=== PATIENT | female | born 1945 | race Caucasian/White ===

== ENCOUNTER 2019-03-21 15:09 | Inpatient (IN) | payer MEDICARE, OTHER ==
[~2019-03-21] VITALS: Ht 160 cm; Wt 66.2 kg
--- NOTE | 2019-03-21 16:21 | Emergency Room Report ---
History of Present Illness General Chief Complaint: Generalized Weakness Source: Patient Present Illness HPI The patient is sent in by her PCP. Patient has a history of MS. She states that she had been in remission for her MS for the past 40 years. She states that when she was 31 years old she had a severe episode of MS which made her wheelchair-bound. However, since that time she has been able to function normally. She states she is able to get around on her own even after her 1 year ago. She states that starting 4 days ago she has had severe generalized weakness and has been unable to do basic activities of daily living such as getting out of bed and going to the toilet. She recently has been treated for urinary tract infection. She denies recent illness. She denies fever chills. She denies nausea or vomiting. She denies cough or congestion. She denies chest pain or shortness of breath. She denies abdominal pain. She has no other complaints. Allergies: Coded Allergies: SULFA (SULFONAMIDE ANTIBIOTICS) (Verified Allergy, Unknown, 10/07/08) Patient History Past Medical History: see triage record, DM, other - MS Social History: Denies: smoking, alcohol use, drug use Last Menstrual Period: n/a Reviewed Nursing Documentation: PMH: Agreed; PSxH: Agreed Nursing Documentation-PMH Hx Diabetes: Yes - type 2 Review of Systems All Other Systems: negative except mentioned in HPI Physical Exam Vital Signs Date Time Temp Pulse Resp B/P (MAP) Pulse Ox O2 Delivery O2 Flow Rate FiO2 03/21/19 15:30 99.9 125 18 141/70 (93) 98 Room Air Sp02 EP Interpretation: reviewed, normal General Appearance: no apparent distress, alert, GCS 15, non-toxic Head: normocephalic, atraumatic Eyes: bilateral eye normal inspection, bilateral eye PERRL ENT: hearing grossly normal, normal pharynx, no angioedema, normal voice Neck: full range of motion, supple/symm/no masses Respiratory: chest non-tender, lungs clear, normal breath sounds, no respiratory distress, no retraction, no accessory muscle use, speaking full sentences Cardiovascular #1: regular rate, rhythm, no edema Gastrointestinal: normal bowel sounds, non tender, soft, non-distended, no guarding, no rebound Rectal: deferred Musculoskeletal: normal range of motion, non-tender Neurologic: alert, oriented x3, responsive, speech normal, other - Generalized weakness Psychiatric: judgement/insight normal, memory normal, mood/affect normal, no suicidal/homicidal ideation Skin: no rash Medical Decision Making Diagnostic Impression: Primary Impression: Pyelonephritis Additional Impressions: Fever Sepsis ER Course Patient has a fever of 102. She complains of generalized weakness and was concerned that she may have been having an MS exacerbation, however, given the pyelonephritis and fever, I suspect this is the etiology of her symptoms. She was given broad-spectrum IV antibiotics, IV fluids and admitted for further evaluation and treatment. Laboratory Tests Test 03/21/19 16:16 03/21/19 16:50 White Blood Count 10.9 K/UL (4.8-10.8) H Red Blood Count 3.81 M/UL (4.20-5.40) L Hemoglobin 11.2 G/DL (12.0-16.0) L Hematocrit 33.4 % (37.0-47.0) L Mean Corpuscular Volume 88 FL (80-99) Mean Corpuscular Hemoglobin 29.4 PG (27.0-31.0) Mean Corpuscular Hemoglobin Concent 33.4 G/DL (32.0-36.0) Red Cell Distribution Width 12.1 % (11.6-14.8) Platelet Count 315 K/UL (150-450) Mean Platelet Volume 6.6 FL (6.5-10.1) Neutrophils (%) (Auto) 82.1 % (45.0-75.0) H Lymphocytes (%) (Auto) 9.4 % (20.0-45.0) L Monocytes (%) (Auto) 7.4 % (1.0-10.0) Eosinophils (%) (Auto) 0.7 % (0.0-3.0) Basophils (%) (Auto) 0.4 % (0.0-2.0) Sodium Level 129 MMOL/L (136-145) L Potassium Level 4.7 MMOL/L (3.5-5.1) Chloride Level 94 MMOL/L (98-107) L Carbon Dioxide Level 26 MMOL/L (21-32) Anion Gap 9 mmol/L (5-15) Blood Urea Nitrogen 34 mg/dL (7-18) H Creatinine 1.2 MG/DL (0.55-1.30) Estimate Glomerular Filtration Rate mL/min (>60) Glucose Level 165 MG/DL (74-106) H Lactic Acid Level 1.60 mmol/L (0.4-2.0) Calcium Level 9.0 MG/DL (8.5-10.1) Magnesium Level 1.6 MG/DL (1.8-2.4) L Total Bilirubin 0.3 MG/DL (0.2-1.0) Aspartate Amino Transferase (AST) 45 U/L (15-37) H Alanine Aminotransferase (ALT) 27 U/L (12-78) Alkaline Phosphatase 74 U/L (46-116) Total Creatine Kinase 3017 U/L (26-308) H Creatine Kinase MB 6.7 NG/ML (0.0-3.6) H Creatine Kinase MB Relative Index 0.2 Total Protein 7.4 G/DL (6.4-8.2) Albumin 2.7 G/DL (3.4-5.0) L Globulin 4.7 g/dL Albumin/Globulin Ratio 0.6 (1.0-2.7) L Urine Color Pending Urine Appearance Pending Urine pH Pending Urine Specific Follett Pending Urine Protein Pending Urine Glucose (UA) Pending Urine Ketones Pending Urine Blood Pending Urine Nitrite Pending Urine Bilirubin Pending Urine Urobilinogen Pending Urine Leukocyte Esterase Pending EKG Diagnostic Results Rate: tachycardiac Rhythm: other - S.tachycardia ST Segments: no acute changes Rhythm Strip Diag. Results EP Interpretation: yes Rate: 110's Rhythm: no PVC's, no ectopy, other Other Impression S.tachycardia Chest X-Ray Diagnostic Results Chest X-Ray Diagnostic Results : Chest X-Ray Ordered: Yes # of Views/Limited/Complete: 1 View Indication: Other EP Interpretation: Yes Interpretation: no consolidation, no effusion, no pneumothorax, no acute cardiopulmonary disease Impression: No acute disease Electronically Signed by: Shweta Valencia DO Last Vital Signs Date Time Temp Pulse Resp B/P (MAP) Pulse Ox O2 Delivery O2 Flow Rate FiO2 03/21/19 15:30 99.9 125 18 141/70 (93) 98 Room Air Status: improved Disposition: ADMITTED INPATIENT Condition: Serious Referrals: Julian Tony MD (PCP) Shweta Valencia DO Mar 21, 2019 16:21
[2019-03-21 16:33] LABS: BASOPHILS % (AUTO) 0.4 % (0.0-2.0); EOSINOPHILS % (AUTO) 0.7 % (0.0-3.0); HEMATOCRIT 33.4 % (37.0-47.0); HEMOGLOBIN 11.2 G/DL (12.0-16.0); LYMPHOCYTES % (AUTO) 9.4 % (20.0-45.0); MEAN CORPUSCULAR VOLUME 88 FL (80-99); MONOCYTES % (AUTO) 7.4 % (1.0-10.0); NEUTROPHILS % (AUTO) 82.1 % (45.0-75.0); PLATELET COUNT 315 K/UL (150-450); RED BLOOD COUNT 3.81 M/UL (4.20-5.40); RED CELL DISTRIBUTION WIDTH 12.1 % (11.6-14.8); WHITE BLOOD COUNT 10.9 K/UL (4.8-10.8)
--- NOTE | 2019-03-21 16:56 | NUR ---
ED Nurse Note: pt with straight cath urine obtained. pt with 450ml drained with intervention. pt with rectal temp done 102.2. md aware of results. cloudy yellow urine foul smelling sent to lab
[2019-03-21 16:57] LABS: ANION GAP 9 mmol/L (5-15); BLOOD UREA NITROGEN 34 mg/dL (7-18); CARBON DIOXIDE 26 MMOL/L (21-32); CHLORIDE 94 MMOL/L (98-107); CREATININE 1.2 MG/DL (0.55-1.30); POTASSIUM 4.7 MMOL/L (3.5-5.1); SODIUM 129 MMOL/L (136-145)
[2019-03-21] MEDS ORDERED: Acetaminophen 500mg (ES) tab ORAL ONE (17:00)
[2019-03-21] MEDS ORDERED: Meropenem 1 GM in NS 55 ML IVPB ONE (17:00)
--- NOTE | 2019-03-21 17:00 | Diagnostic Imaging Report ---
Indication: Pain, weakness Technique: One view of the chest Comparison: 10/06/2008 Findings: Lungs and pleural spaces are clear. Heart size is normal. No significant interim change Impression: No acute process
[2019-03-21 17:12] LABS: ALANINE AMINOTRANSFERASE 27 U/L (12-78); ALBUMIN 2.7 G/DL (3.4-5.0); ALBUMIN/GLOBULIN RATIO 0.6 (1.0-2.7); ALKALINE PHOSPHATASE 74 U/L (46-116); ASPARTATE AMINO TRANSFERASE 45 U/L (15-37); BILIRUBIN,TOTAL 0.3 MG/DL (0.2-1.0); CKMB 6.7 NG/ML (0.0-3.6); CREATINE KINASE 3017 U/L (26-308)
[2019-03-21 17:55] LABS: APPEARANCE,URINE CLOUDY; BILIRUBIN, URINE NEGATIVE (NEGATIVE); COLOR,URINE PALE YELLOW; GLUCOSE, URINE (UA) NEGATIVE (NEGATIVE); KETONES,URINE NEGATIVE (NEGATIVE); LEUKOCYTE ESTERASE ,URINE 3+ (NEGATIVE); NITRITE,URINE POSITIVE (NEGATIVE); PH,URINE 8 (4.5-8.0); PROTEIN,URINE 3+ (NEGATIVE); UROBILINOGEN,URINE NORMAL MG/DL (0.0-1.0)
--- NOTE | 2019-03-21 19:13 | NUR ---
HAND-OFF: Report and PT given to HUSAM Paredes.
[2019-03-21] MEDS ORDERED: METFORMIN HCL500 M1 ORAL (19:40)
[2019-03-21] MEDS ORDERED: DITROPAN XL5 MG ORAL (19:40)
[2019-03-21] MEDS ORDERED: VALIUM2 MG ORAL (19:40)
[2019-03-21] MEDS ORDERED: OXYTROL FOR WO1 EACH TD (19:40)
[2019-03-21] MEDS ORDERED: COZAAR25 MG ORAL (19:40)
[2019-03-21 20:17] VITALS: BP 108/56
--- NOTE | 2019-03-21 20:35 | NUR ---
TRANSFER TO FLOOR: Patient transferred to as ordered, per Dr Tony. Report given to HUSAM Whitmore . Belongings and medications given to . Family and or S/O informed of transfer.
--- NOTE | 2019-03-21 20:45 | NUR ---
NURSE NOTES: Received patient from ER. Patient alert and oriented x4. Calm and cooperative. Transferred via gurney. Patient's personal wheelchair at bedside. On room air, no signs of respiratory distress. Afebrile. No c/o pain or discomfort. Bed in low position, locked, bed alarm on, call light within reach. Oriented patient to unit.
[2019-03-21 21:00] VITALS: BP 103/45
--- NOTE | 2019-03-21 22:00 | NUR ---
NURSE NOTES: Blood sugar 191, received admission orders from Dr. Tony. Patient refused to have pictures taken but allowed nurse to inspect skin. Wound on left ischium, approximately 10 cm in diameter, yellow. Scab on left lateral fibula. Excoriation on right groin, stage 2 on sacrum.
[2019-03-21] MEDS: metFORMIN 500mg tab ORAL SCH (23:06)
[2019-03-21] MEDS ORDERED: Gadavist 7.5mMol/7.5ml vial IV PRN ×2 (23:30)
--- NOTE | 2019-03-21 23:49 | History & Physical ---
History and Physical History & Physicial Date of Admission: March 21, 2019. Patient Identification: Ms. Russell is a 73 y/o woman with intermittent fevers, increased urinary incontinence, progressive weakness, and inability to care for herself. Evaluation in the office suggested possible recurrent urinary tract infection, as well as concerns about exacerbation of neurologic causes of weakness including multiple sclerosis. Ms. Russell was referred to the [facility], where evaluation revealed fever, marked pyuria, azotemia, hyponatremia, hypomagnesemia, mild hyperglycemia, significant elevation of CPK. She is admitted for further evaluation and treatment. History of Present Illness: Ms. Russell is patient with a long history of functional deficits precipitated initially by an acute episode of multiple sclerosis which left her with functional paraparesis and an element of mild quadriparesis occurring some 40 years ago. In recent years she has been essentially wheelchair-bound with the ability to transfer. Her other chronic medical problems included hypertension, dyslipidemia, [id number] diabetes mellitus, detrusor hyperreflexia. More recently patient has had symptoms of neuropathy, felt primarily to be associated with her diabetes mellitus. In April 2017 she had an acute episode of word finding difficulty, described to an acute cerebrovascular accident. The deficit resolved to a large extent. The patient was also found at that time to have a patent foramen ovale, for which she declined surgical repair. In October 2017 she had an episode of headache and additional weakness, with suspicion of a possible additional cerebrovascular accident versus migraine. There were word finding difficulties as well during this episode. CT angiogram of the head neck demonstrated distal basilar artery stenosis as well as left posterior communicating artery stenosis. The patient was discharged on Plavix. Around this time the patient also lost her who had been experiencing progressive advanced dementia. She underwent a period of significant depressive symptomatology and reactive grief. In November 2017 the patient developed significant left lower extremity cellulitis and a left heel ulcer which required an extended outpatient course of therapy. Symptoms of intermittent claudication were also described that time. Despite these multiple problems, Ms. Russell continued to manage in her own condominium with some assistance. However she begun to consider the possibility of moving to an congregate living situation in order to have access to more care. Approximately 4 weeks ago the patient complained of increasing weakness, increasing urinary incontinence, and felt she was no longer able to care for self. She is somewhat tearful at the time. Metabolic evaluation revealed fairly normal laboratories but evidence of a Citrobacter koseri urinary tract infection. She was treated with a seven-day course of Keflex, and initially improved. However in the last week or so she has become progressively weaker, with worsening self-care deficits. She is also noted increased urinary incontinence once again and also recurrent intermittent fevers. Today she presented the office complaining that she grown so weak that she was no longer able to care for herself. Examination revealed a mild sinus tachycardia with no evidence of fever. Given the symptoms suggesting possible recurrent urinary tract infection, as well as her inability to care for herself at home, Ms. Russell was referred to the [facility] emergency department for further evaluation. In the emergency department she was noted to have fever over 102 degrees, and laboratory work revealed significant pyuria , electrolyte disorder with azotemia hyponatremia hypomagnesemia and mild hyperglycemia, as well as a significant elevation of CPK. She was therefore admitted for further evaluation and treatment. At the time of this examination, she reports she is feeling somewhat better after receiving a dose of intravenous antibiotics and intravenous fluids. Other than the generalized weakness she denies any specific new symptomatology. Although she has had a great deal of difficulty transferring and mobilizing herself there is no history of significant fall or trauma. Patient herself did raise the concern that perhaps her multiple sclerosis was somehow contributing to the acute presentation. Past Medical History: 1. History of multiple sclerosis, quiescent over 40 years with functional quadriparesis. 2. Hypertension. 3. Diabetes mellitus with neuropathy. 4. Dyslipidemia. 5. Bilateral intermittent claudication of the lower extremities. 6. History of left lower extremity cellulitis complicated by heel ulceration. 7. Detrusor hyperreflexia. 8. 2 prior episodes of word finding difficulty attributed to cerebrovascular accident and/or migraine. 9. 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 10. Patent foramen ovale. Medications: 1. Diazepam 2 mg 3 times daily as needed muscle spasm. 2. Metformin 500 mg twice daily. 3. Oxybutynin 5 mg daily. Prior medications have also included baclofen, cyclobenzaprine, escitalopram, losartan, simvastatin, [employer] Inveni transdermal pen. Allergies: Sulfa drugs. Social History: Ms. Russell is retired and [facility] As noted, she has been somewhat over a year ago. There is no significant smoking history, and a history of 1 glass of wine a day. Ms. Russell is looking into the possibility of moving into a congregate living situation such as an RCFE. She has family in the [facility]. Family History: Notable for cancer in her mother and sister, diabetes in uncles on both sides of the family, cardiac disease in her grandfather and uncles, stroke in her grandmother and mental illness in her mother. Review of Systems: Head and neck: No recent headaches. Respiratory: No dyspnea, cough. Cardiac: No noted chest pain, palpitations, chest pressure. Gastrointestinal: Somewhat diminished appetite, no abdominal pain, no change in bowel movements. Urinary: No dysuria but increased urinary incontinence as noted. Systemic: Increased generalized weakness without definite focality. Intermittent fevers feeling. Decreased ability to care for self. Stressed and discouraged but no definite depressive syndrome. Physical Examination: Blood pressure 141/70, heart rate 125 regular, respiratory rate 18, temperature 102.2 rectally, oxygen saturation 98% on room air. Generally, Ms. Russell is alert with normal fluent speech, normal mental status. She does not appear to be in acute physical distress, but does appear somewhat discouraged and frustrated. Head/neck: Normocephalic, atraumatic skull. Sclera anicteric. Oropharynx somewhat dry. Neck without discrete masses and normal range of motion. Chest: Distant but clear breath sounds. Cardiac: Regular rhythm, without audible gallops murmurs or rubs. Abdomen: Normal bowel sounds, soft, nontender, without masses or organomegaly. No definitive superior pubic tenderness or dullness. Extremities: Trace dependent edema bilaterally in the lower extremities. Patient has increased tone in lower extremities with decreased range of motion. There may be an element of contracture with flexion at the hips and knees. Neurologic: Normal language and mental status. Generalized weakness more prominent in the lower extremities. No definite new focality. Laboratory Data: WBC 10.9, hematocrit 33.4%, MCV 88, platelet count 315, differential with 82% neutrophils. Sodium 129, potassium 4.7, chloride 94, CO2 26, BUN 34, creatinine 1.2, glucose 165, lactate 1.6, calcium 9.0, magnesium 1.6, total bilirubin 0.3, AST 45, ALT 27, alkaline phosphatase 74, total CK 3017, MB 6.7, total protein 2.4, albumin 2.7. Urinalysis with 3+ protein, 4+ blood, positive nitrates, negative bilirubin, normal urobilinogen, 3+ leukocyte esterase, too numerous to count RBCs, too numerous to count WBCs, many bacteria. Chest x-ray: No acute cardiopulmonary process. Impression/Plan: 1. Ms. Russell's presentation and laboratory findings certainly are suggestive of a significant urinary tract infection, either persistent Citrobacter despite oral therapy, or recurrent infection. Predisposing factors could include chronic urinary retention, rule out other anatomic abnormalities including stone disease. An abdominal and pelvic ultrasound will be obtained as initial screening procedure in this regard. Every 6 hour bladder scans will be obtained and straight caths ordered as necessary for evidence of significant retention. Patient's Ditropan will be discontinued for the present time, and detrusor hyperreflexia will be monitored. Patient was cultured in the emergency department and started on meropenem. This will be continued for the time being pending culture results. 2. There is evidence of electrolyte disorder and azotemia, as well as presenting tachycardia, suggesting volume depletion. The patient is received 2 L of normal saline in the emergency department and will be continued on a rate of 70 cc/h with follow-up laboratories. An element of the patient's hyponatremia could be associated with mild hyperglycemia. Accu-Cheks will be obtained without a sliding scale coverage. Glycohemoglobin will be checked as well.. 3. Patient's overall functional decline and generalized weakness could also be due in part to progressive neurologic disease. Possibility of an exacerbation of her multiple sclerosis is possible, but does not appear particularly likely. MRI imaging of the brain and cervical spine will be obtained in this regard. The elevated CK raises the possibility of some type of primary myopathic disease , although the more likely etiology is associated with immobility and the sepsis. CPKs will be followed for normalization. Dr. Onur Oneal has been asked to evaluate the patient from a neurologic point of view. 4. Patient's diazepam, metformin, will be continued. 5. Once patient stabilizes sufficiently attempt will be made to mobilize patient with physical therapy. 6. At the time of discharge the patient would likely benefit from a course of physical therapy, either at the acute inpatient rehab level or at a fdc facility. Subsequent to that the patient likely would benefit from placement in an R[facility]E. Additional evaluation and treatment will be considered depending on patient's initial response to therapy and further laboratory results. Julian Tony MD Mar 21, 2019 23:49
[2019-03-22] VITALS: BP 114/58
--- NOTE | 2019-03-22 | NUR ---
NURSE NOTES: Patient finally agreed to have pictures taken of her wounds. Straight cathed patient for bladder scan of 674ml, obtained 1050 ml of output, cloudy yellow urine.
[2019-03-22] MEDS ORDERED: PLAVIX75 MG ORAL (02:32)
[2019-03-22 04:00] VITALS: BP 119/59
[2019-03-22] MEDS: Meropenem 1 GM in NS 55 ML IVPB SCH ×2 (05:44→17:17)
--- NOTE | 2019-03-22 06:30 | NUR ---
NURSE NOTES: Attempted to convince patient to have a morse, patient continues to refuse. Straight cathed patient for a bladder scan residual of 576ml. Straight cathed and obtained 900.
[2019-03-22 07:30] LABS: BASOPHILS % (AUTO) 0.4 % (0.0-2.0); EOSINOPHILS % (AUTO) 1.6 % (0.0-3.0); HEMATOCRIT 29.4 % (37.0-47.0); HEMOGLOBIN 9.9 G/DL (12.0-16.0); LYMPHOCYTES % (AUTO) 9.3 % (20.0-45.0); MEAN CORPUSCULAR VOLUME 88 FL (80-99); MONOCYTES % (AUTO) 7.8 % (1.0-10.0); NEUTROPHILS % (AUTO) 80.9 % (45.0-75.0); PLATELET COUNT 285 K/UL (150-450); RED BLOOD COUNT 3.35 M/UL (4.20-5.40); RED CELL DISTRIBUTION WIDTH 12.2 % (11.6-14.8); WHITE BLOOD COUNT 11.4 K/UL (4.8-10.8)
[2019-03-22 07:37] LABS: ALANINE AMINOTRANSFERASE 22 U/L (12-78); ALBUMIN 2.2 G/DL (3.4-5.0); ALBUMIN/GLOBULIN RATIO 0.6 (1.0-2.7); ALKALINE PHOSPHATASE 66 U/L (46-116); ANION GAP 9 mmol/L (5-15); ASPARTATE AMINO TRANSFERASE 34 U/L (15-37); BILIRUBIN,TOTAL 0.3 MG/DL (0.2-1.0); BLOOD UREA NITROGEN 26 mg/dL (7-18); CALCIUM 8.6 MG/DL (8.5-10.1); CARBON DIOXIDE 25 MMOL/L (21-32); CHLORIDE 101 MMOL/L (98-107); CREATINE KINASE 1555 U/L (26-308); CREATININE 1.2 MG/DL (0.55-1.30); POTASSIUM 4.1 MMOL/L (3.5-5.1); SODIUM 134 MMOL/L (136-145)
--- NOTE | 2019-03-22 07:41 | NUR ---
HAND-OFF: Report given to Jackie WEINER. Plan of care endorsed.
--- NOTE | 2019-03-22 07:50 | NUR ---
NURSE NOTES: Received report from HUSAM Whitmore. Patient is awake and responsive, A/O x4. Breathing regular with no acute distress noted at this time. Patient denies pain at this time. Bed is in lowest position, breaks engaged, and call light within reach at all times. Patient's IV is in tact and running fluids at prescribed rate. Patient is comfortably resting in bed with no distress at this time. Will continue to monitor.
[2019-03-22 08:00] VITALS: BP 102/46
[2019-03-22] MEDS: metFORMIN 500mg tab ORAL SCH ×2 (08:52→17:15)
--- NOTE | 2019-03-22 09:05 | NUR ---
NURSE NOTES: Dr. Chavo bergeron to order off tele order for patient to go to MRI. Order noted and carried out.
--- NOTE | 2019-03-22 10:00 | NUR ---
CASE MANAGEMENT:REVIEW 73 YR OLD FEMALE FROM HOME TO ER CC: GENERALIZED WEAKNESS AND FAST HEART RATE SI: SEPSIS. PYELONEPHRITIS 102.2 125 18 141/70 98% ON RA WBC+10.9 H/H-11.2/33.4 TCK+3017 NA-129 MAG-1.6 IS: 2L NS BOLUS TYLENOL PO IV MEROPENEM CXR URINE CX : TO TELEMETRY
--- NOTE | 2019-03-22 13:30 | NUR ---
NURSE NOTES: Bladder scan shows 680 ml. In and out cath done and cloudy pale yellow urine drained. About 800 ml output.
--- NOTE | 2019-03-22 13:48 | NUR ---
NURSE NOTES:WOUND CARE NOTES:Pt presented on admission with multiple pressure injuries.Non-blanchable erythema without induration sacrum.Macular red rash noted to R groin and perineum. Pt denied burning or itching. Unstageable pressure injury L Ischium. Base of wound 95% yellow slough,5% necrotic. Erythema with shearing noted periwound. (L)3.4cm x (W)3cm. Pt stated due to feversnand weakness has been unable to transfer to bed and has been sitting up in w/c continuously. Pt stated she belives she has had wound for approx 10days DTPI noted to L trochanter. Wound is linear ,indurated and maroon in colour. Pt verbalized pain at site when minimally palpated.(L)11cm x (W)0.8cm. DTPI L heel extending into plantar aspect. Base of wound is maroon with purple area at plantar aspect. Pt stated she developed wound to heel approx 6 weeks ago.(L)5.8cm x (W)5cm. R heel is boggy with non-blanchable erythema. Non-tender when palpated. DTPI lateral R foot. Base of wound maroon with red tinged borders. (L)0.7cm x (W)0.5cm. Tx.Plan:Apply Cavilon Skin Barrier to L trochanter (Do Not Massage/Rub site). Cover with Optifoam drsg. Change every 7 days and prn. Cleanse wound L ischium with Saline.Apply Therahoney. Apply Cavilon periwound. Cover with Optifoam drsg every 3 days and prn. Apply Moisture Barrier Paste to Sacrum. Coover with Optifoam drsg. Change every 3 days and prn. Apply Cavilon Skin Barrier to R heel , Lateral R foot and L heel. Cover with Optifoam drsg. Change every 7 days and PRN. APM/CRYSTAL Mattress overlay. Reposition at least every 2hours or as tolerated. Off-load heels with pillow.
--- NOTE | 2019-03-22 15:21 | Diagnostic Imaging Report ---
Indication: Abdominal pain, leukocytosis, elevated renal function Technique: A plantar grayscale and duplex Doppler imaging of the abdomen Comparison: None Findings: Limited evaluation of the midline due to overlying bowel gas. Proximal mid portions of the abdominal aorta and pancreas obscured. Liver is normal in size. Echogenicity is homogeneous. No sonographically appreciable liver mass identified. Hepatic contour appears smooth. Main portal vein is patent with normal direction of flow. Cholelithiasis is noted within a contracted gallbladder. There is no pericholecystic fluid. Sonographic Carroll sign reported as negative. No intrahepatic or extrahepatic biliary ductal dilatation. Common bile duct measures 3 to 4 mm. Kidneys demonstrate normal echogenicity. There is no hydronephrosis or sonographically appreciable renal stone. Bladder is distended with a volume of 515 mL. Some debris is noted layering in the bladder. Imaged portions of the distal abdominal aorta normal in caliber. Spleen normal in size. No ascites demonstrated. IMPRESSION: Cholelithiasis. No sonographic evidence to suggest acute cholecystitis. Sonographic Carroll sign reported as negative. * Pancreas obscured due to overlying bowel gas and not evaluated. * Distended bladder with a volume of 515 mL. Correlate for urinary retention. Mild layering debris noted within the bladder. Correlation with urinalysis recommended to assess for cystitis.
--- NOTE | 2019-03-22 15:40 | Neurology Progress Note ---
Interim History Interim History Interim History NEUROLOGY CONSULTATION: Full note dictated #[id number] 73-year-old, right-handed, lady, who does have a past history of multiple medical problems including what has been called multiple sclerosis. She was functioning relatively well until age 27 when she suddenly developed problems with walking due to loss of sensation in her lower extremities this loss of sensation rapidly spread into her upper extremities and she then started to become progressively weak more so in the lower extremities than the upper extremities. She was diagnosed with multiple sclerosis and given large doses of steroids following which she improved as long as she was on the steroids but as soon as the steroids were stopped the weakness and altered sensations returned. She became wheelchair-bound at that time and has remained so ever since. Over the years whenever she is ill with any other problems her weakness gets significantly worse generally. At her best she is able to transfer from bed to wheelchair. She denies any problems with vision, hearing, speech or language, memory, or other neurological symptoms. She was relatively well until approximately 2 weeks ago when she developed a urinary tract infection. She was treated with oral antibiotics and did improve. However yesterday she presented to Dr. Guajardo's office and was again significantly weaker. She was sent to the [facility] emergency room where she was febrile to temperature of 102 F, had pyuria, and had other electrolyte imbalances. She has since been admitted to the hospital and feels a little better today. ON EXAM: Awake and alert Oriented to person place and time Memory: 3/3-0, 1, 3. Able to remember presidents [employer] through [place] [employer] Mathematical skills normal Visual-spatial function normal Speech normal Language normal Cranial nerves II through XII intact Motor: Tone increased with significant spasticity in both lower extremities more marked on the right than on the left Wasting of small hand muscles in both upper extremities. Significant wasting of muscles in both lower extremities with bilateral knee contractures and flexion. G 5/5 in both upper extremities. G 0/5 in both lower extremities. Sensory: C2 segmental sensory level. Reflexes: 2+ and bilaterally symmetrical at the biceps triceps and brachioradialis. 3++ on the right and 3+ on the left at the knees. 4+ on the right and 1+ on the left at the ankles. The plantar response was extensor on the right and mute on the left Coordination: [id number] normal bilaterally unable to perform [id number] Stance and gait could not be tested IMPRESSION: 73-year-old right-handed lady with a history of altered sensations starting in her lower extremities and spreading up to upper extremities followed by weakness in the lower extremities spreading into the upper extremities at age 27 diagnosed as multiple sclerosis. History of worsening of neurological symptoms associated with any other illness. On exam significant spasticity in both lower extremities, wasting in both lower extremities more than the upper extremities, relatively good strength in the upper extremities with no motor power in both lower extremities, C2 segmental sensory level, relatively normal upper extremity reflexes with pathologically brisk knee jerks and right ankle clonus. History and examination consistent with demyelinating disease of a monophasic nature which may either be transverse myelitis versus multiple sclerosis. Present worsening of neurological dysfunction due to acute infectious process and metabolic dysfunction superimposed on underlying structural central nervous system disease. RECOMMENDATIONS: Agree with management thus far. Aggressively correct infectious and metabolic problems. Await MRI of brain and cervical spine. Further recommendations will be given following that. Onur Oneal M.D., M.S.P.H. Objective Physical Exam Last Vital Signs Date Time Temp Pulse Resp B/P (MAP) Pulse Ox O2 Delivery O2 Flow Rate FiO2 03/22/19 12:00 102 03/22/19 08:00 98.4 18 102/46 (64) 97 03/21/19 21:00 Room Air Laboratory Tests Test 03/21/19 16:16 03/21/19 16:50 03/22/19 05:30 White Blood Count 10.9 K/UL (4.8-10.8) H 11.4 K/UL (4.8-10.8) H Red Blood Count 3.81 M/UL (4.20-5.40) L 3.35 M/UL (4.20-5.40) L Hemoglobin 11.2 G/DL (12.0-16.0) L 9.9 G/DL (12.0-16.0) L Hematocrit 33.4 % (37.0-47.0) L 29.4 % (37.0-47.0) L Mean Corpuscular Volume 88 FL (80-99) 88 FL (80-99) Mean Corpuscular Hemoglobin 29.4 PG (27.0-31.0) 29.6 PG (27.0-31.0) Mean Corpuscular Hemoglobin Concent 33.4 G/DL (32.0-36.0) 33.8 G/DL (32.0-36.0) Red Cell Distribution Width 12.1 % (11.6-14.8) 12.2 % (11.6-14.8) Platelet Count 315 K/UL (150-450) 285 K/UL (150-450) Mean Platelet Volume 6.6 FL (6.5-10.1) 6.4 FL (6.5-10.1) L Neutrophils (%) (Auto) 82.1 % (45.0-75.0) H 80.9 % (45.0-75.0) H Lymphocytes (%) (Auto) 9.4 % (20.0-45.0) L 9.3 % (20.0-45.0) L Monocytes (%) (Auto) 7.4 % (1.0-10.0) 7.8 % (1.0-10.0) Eosinophils (%) (Auto) 0.7 % (0.0-3.0) 1.6 % (0.0-3.0) Basophils (%) (Auto) 0.4 % (0.0-2.0) 0.4 % (0.0-2.0) Sodium Level 129 MMOL/L (136-145) L 134 MMOL/L (136-145) L Potassium Level 4.7 MMOL/L (3.5-5.1) 4.1 MMOL/L (3.5-5.1) Chloride Level 94 MMOL/L (98-107) L 101 MMOL/L (98-107) Carbon Dioxide Level 26 MMOL/L (21-32) 25 MMOL/L (21-32) Anion Gap 9 mmol/L (5-15) 9 mmol/L (5-15) Blood Urea Nitrogen 34 mg/dL (7-18) H 26 mg/dL (7-18) H Creatinine 1.2 MG/DL (0.55-1.30) 1.2 MG/DL (0.55-1.30) Estimat Glomerular Filtration Rate mL/min (>60) mL/min (>60) Glucose Level 165 MG/DL (74-106) H 136 MG/DL (74-106) H Lactic Acid Level 1.60 mmol/L (0.4-2.0) Calcium Level 9.0 MG/DL (8.5-10.1) 8.6 MG/DL (8.5-10.1) Magnesium Level 1.6 MG/DL (1.8-2.4) L 2.2 MG/DL (1.8-2.4) Total Bilirubin 0.3 MG/DL (0.2-1.0) 0.3 MG/DL (0.2-1.0) Aspartate Amino Transf (AST/SGOT) 45 U/L (15-37) H 34 U/L (15-37) Alanine Aminotransferase (ALT/SGPT) 27 U/L (12-78) 22 U/L (12-78) Alkaline Phosphatase 74 U/L (46-116) 66 U/L (46-116) Total Creatine Kinase 3017 U/L (26-308) H 1555 U/L (26-308) H Creatine Kinase MB 6.7 NG/ML (0.0-3.6) H Creatine Kinase MB Relative Index 0.2 Total Protein 7.4 G/DL (6.4-8.2) 6.1 G/DL (6.4-8.2) L Albumin 2.7 G/DL (3.4-5.0) L 2.2 G/DL (3.4-5.0) L Globulin 4.7 g/dL 3.9 g/dL Albumin/Globulin Ratio 0.6 (1.0-2.7) L 0.6 (1.0-2.7) L Urine Color Pale yellow Urine Appearance Cloudy Urine pH 8 (4.5-8.0) Urine Specific [place] 1.005 (1.005-1.035) Urine Protein 3+ (NEGATIVE) H Urine Glucose (UA) Negative (NEGATIVE) Urine Ketones Negative (NEGATIVE) Urine Blood 4+ (NEGATIVE) H Urine Nitrite Positive (NEGATIVE) H Urine Bilirubin Negative (NEGATIVE) Urine Urobilinogen Normal MG/DL (0.0-1.0) Urine Leukocyte Esterase 3+ (NEGATIVE) H Urine RBC Tntc /HPF (0 - 2) H Urine WBC Tntc /HPF (0 - 2) H Urine Squamous Epithelial Cells Occasional /LPF Urine Bacteria Many /HPF (NONE) H Erythrocyte Sedimentation Rate 109 MM/HR (0-30) H Hemoglobin A1c 6.0 % (4.3-6.0) Vitamin B12 Level 285 PG/ML (193-986) Onur Oneal MD Mar 22, 2019 15:40
--- NOTE | 2019-03-22 15:49 | Geriatric Progress Note ---
Assessment/Plan Problems: (1) Acute kidney injury (2) Volume depletion (3) Rhabdomyolysis (4) Skin ulcer (5) B12 deficiency (6) Multiple sclerosis (7) Pyelonephritis (8) Sepsis Assessment/Plan UTI, awaiting C&S. Dr. Bloom to evaluate re antibiotic coverage. Monitor bladder volumes, emptying. Discussed with patient use of ditropan, may require urecholine if residuals persist. Skin ulcers, discussed with Dr. Chang. Treatments initiated. Significant rhabdomyolysis apparently due to severe immobility associated with patient's septic process, improved. Volume depletion improving. Monitor oral intake. LE flexion. Will mobilize in day or so with P.T. Generalized weakness, ? multiple sclerosis or other contributing pathology. Dr. Oneal evaluating patient. B12 sufficiently low to initiate parenteral supplementation at this time. Review imaging results. F/u labs. Discussed with: patient, hospital staff Subjective Interval Events Patient comfortable in room. Has been undergoing imaging studies. Patient with no new issues. VSS. Labs with improvement in azotemia, CPK. Urine growing Gm negative. B12 285. Imaging results pending. Constitutional: Denies: chills, sweats Respiratory: Denies: cough, shortness of breath Cardiovascular: Denies: chest pain Gastrointestinal/Abdominal: Denies: abdominal pain, diarrhea Genitourinary: Denies: dysuria Geriatric Geriatric Last 24 Hour Vital Signs Date Time Temp Pulse Resp B/P (MAP) Pulse Ox O2 Delivery O2 Flow Rate FiO2 03/22/19 12:00 102 03/22/19 08:00 107 03/22/19 08:00 98.4 110 18 102/46 (64) 97 03/22/19 05:50 98.4 03/22/19 04:00 110 03/22/19 04:00 98.4 100 19 119/59 (79) 98 03/22/19 00:00 103 03/22/19 00:00 98.6 105 19 114/58 (76) 97 03/21/19 21:00 104 03/21/19 21:00 98.2 102 20 103/45 (64) 98 03/21/19 21:00 Room Air 03/21/19 20:35 99.1 103 18 108/56 98 Room Air 03/21/19 20:17 99.1 103 18 108/56 98 Room Air 03/21/19 20:12 99.1 03/21/19 19:14 125 18 Room Air 03/21/19 16:56 102.2 Intake and Output 03/21/19 03/22/19 18:59 06:59 Intake Total 2255 ml Output Total 450 ml 1050 ml Balance -450 ml 1205 ml IV Total 2255 ml Output Urine Total 450 ml 1050 ml Laboratory Tests Test 03/21/19 16:16 03/21/19 16:50 03/22/19 05:30 White Blood Count 10.9 K/UL (4.8-10.8) H 11.4 K/UL (4.8-10.8) H Red Blood Count 3.81 M/UL (4.20-5.40) L 3.35 M/UL (4.20-5.40) L Hemoglobin 11.2 G/DL (12.0-16.0) L 9.9 G/DL (12.0-16.0) L Hematocrit 33.4 % (37.0-47.0) L 29.4 % (37.0-47.0) L Mean Corpuscular Volume 88 FL (80-99) 88 FL (80-99) Mean Corpuscular Hemoglobin 29.4 PG (27.0-31.0) 29.6 PG (27.0-31.0) Mean Corpuscular Hemoglobin Concent 33.4 G/DL (32.0-36.0) 33.8 G/DL (32.0-36.0) Red Cell Distribution Width 12.1 % (11.6-14.8) 12.2 % (11.6-14.8) Platelet Count 315 K/UL (150-450) 285 K/UL (150-450) Mean Platelet Volume 6.6 FL (6.5-10.1) 6.4 FL (6.5-10.1) L Neutrophils (%) (Auto) 82.1 % (45.0-75.0) H 80.9 % (45.0-75.0) H Lymphocytes (%) (Auto) 9.4 % (20.0-45.0) L 9.3 % (20.0-45.0) L Monocytes (%) (Auto) 7.4 % (1.0-10.0) 7.8 % (1.0-10.0) Eosinophils (%) (Auto) 0.7 % (0.0-3.0) 1.6 % (0.0-3.0) Basophils (%) (Auto) 0.4 % (0.0-2.0) 0.4 % (0.0-2.0) Sodium Level 129 MMOL/L (136-145) L 134 MMOL/L (136-145) L Potassium Level 4.7 MMOL/L (3.5-5.1) 4.1 MMOL/L (3.5-5.1) Chloride Level 94 MMOL/L (98-107) L 101 MMOL/L (98-107) Carbon Dioxide Level 26 MMOL/L (21-32) 25 MMOL/L (21-32) Anion Gap 9 mmol/L (5-15) 9 mmol/L (5-15) Blood Urea Nitrogen 34 mg/dL (7-18) H 26 mg/dL (7-18) H Creatinine 1.2 MG/DL (0.55-1.30) 1.2 MG/DL (0.55-1.30) Estimat Glomerular Filtration Rate mL/min (>60) mL/min (>60) Glucose Level 165 MG/DL (74-106) H 136 MG/DL (74-106) H Lactic Acid Level 1.60 mmol/L (0.4-2.0) Calcium Level 9.0 MG/DL (8.5-10.1) 8.6 MG/DL (8.5-10.1) Magnesium Level 1.6 MG/DL (1.8-2.4) L 2.2 MG/DL (1.8-2.4) Total Bilirubin 0.3 MG/DL (0.2-1.0) 0.3 MG/DL (0.2-1.0) Aspartate Amino Transf (AST/SGOT) 45 U/L (15-37) H 34 U/L (15-37) Alanine Aminotransferase (ALT/SGPT) 27 U/L (12-78) 22 U/L (12-78) Alkaline Phosphatase 74 U/L (46-116) 66 U/L (46-116) Total Creatine Kinase 3017 U/L (26-308) H 1555 U/L (26-308) H Creatine Kinase MB 6.7 NG/ML (0.0-3.6) H Creatine Kinase MB Relative Index 0.2 Total Protein 7.4 G/DL (6.4-8.2) 6.1 G/DL (6.4-8.2) L Albumin 2.7 G/DL (3.4-5.0) L 2.2 G/DL (3.4-5.0) L Globulin 4.7 g/dL 3.9 g/dL Albumin/Globulin Ratio 0.6 (1.0-2.7) L 0.6 (1.0-2.7) L Urine Color Pale yellow Urine Appearance Cloudy Urine pH 8 (4.5-8.0) Urine Specific [place] 1.005 (1.005-1.035) Urine Protein 3+ (NEGATIVE) H Urine Glucose (UA) Negative (NEGATIVE) Urine Ketones Negative (NEGATIVE) Urine Blood 4+ (NEGATIVE) H Urine Nitrite Positive (NEGATIVE) H Urine Bilirubin Negative (NEGATIVE) Urine Urobilinogen Normal MG/DL (0.0-1.0) Urine Leukocyte Esterase 3+ (NEGATIVE) H Urine RBC Tntc /HPF (0 - 2) H Urine WBC Tntc /HPF (0 - 2) H Urine Squamous Epithelial Cells Occasional /LPF Urine Bacteria Many /HPF (NONE) H Erythrocyte Sedimentation Rate 109 MM/HR (0-30) H Hemoglobin A1c 6.0 % (4.3-6.0) Vitamin B12 Level 285 PG/ML (193-986) Current Medications Medications (Trade) Dose Ordered Sig/Isaura Route PRN Reason Start Time Stop Time Status Last Admin Dose Admin Acetaminophen (Tylenol) 650 mg Q6H PRN ORAL Mild Pain/Temp > 100.5 03/21/19 22:30 04/20/19 22:29 03/22/19 05:05 Clopidogrel Bisulfate (Plavix) 75 mg DAILY ORAL 03/22/19 09:00 04/21/19 08:59 03/22/19 08:52 Dextrose (Dextrose 50%) 25 ml Q30M PRN IV Hypoglycemia 03/21/19 23:30 04/20/19 23:29 Dextrose (Dextrose 50%) 50 ml Q30M PRN IV Hypoglycemia 03/21/19 23:30 04/20/19 23:29 Diazepam (Valium) 5 mg DAILY PRN ORAL anxiety 03/21/19 22:30 03/28/19 22:29 Gadobutrol (Gadavist) 7.5 mmol NOW PRN IV Radiology Procedure 03/21/19 23:30 03/25/19 23:20 Gadobutrol (Gadavist) 7.5 mmol NOW PRN IV Radiology Procedure 03/21/19 23:30 03/25/19 23:20 Meropenem 1 gm/ Sodium Chloride 55 ml @ 110 mls/hr Q12H IVPB 03/22/19 05:00 03/27/19 04:59 03/22/19 05:44 Metformin HCl (Glucophage) 500 mg BID ORAL 03/21/19 22:30 04/20/19 22:29 03/22/19 08:52 Sodium Chloride 1,000 ml @ 70 mls/hr [id number] IV 03/21/19 22:30 04/20/19 22:29 03/21/19 23:24 Height (Feet): 5 Height (Inches): 3.00 Weight (Pounds): 146 General Appearance: no apparent distress, alert, non-toxic Head: normocephalic, atraumatic Eyes: bilateral anicteric ENT: normal voice Neck: full range of motion, no mass Respiratory: lungs clear Cardiovascular: regular rate, rhythm Gastrointestinal: normal bowel sounds, non tender, soft, no mass, no organomegaly Musculoskeletal: no calf tenderness Edema: trace edema Neurologic: no new focality Skin: wounds - Wounds as per wound care notes. Julian Tony MD Mar 22, 2019 15:49
--- NOTE | 2019-03-22 15:55 | Consultation ---
History of Present Illness General Date patient seen: Mar 22, 2019 Reason for Hospitalization: Generalized Weakness Present Illness HPI This is a very pleasant yet unfortunate 73-year-old female with history of long- standing multiple sclerosis whom in her 30s had a severe episode of MS leaving her wheelchair-bound. Since that time she has been able to function as much as possible and states she is been getting around on her own even after her approximately 1 year ago. Over the past few days she is become more weak and debilitated and unable to do her activities of daily living such as getting around into the bed and going to the restroom. She was seen by her primary care physician recommended to come in for evaluation given deteriorating condition. On admission patient was identified to have a left ischial wound requiring care and management. Surgery called to evaluate and assist with care. Patient seen, [facility] [place], chart reviewed. In discussing care plan with patient she states that over the past few days where she is become more debilitated she has had difficulty getting into bed and has remove the left arm rest of her wheelchair and sat onto the left side of her body leaning over the bed and sleeping in that position and near the supine position for prolonged periods of time. She believes that potentially the positioning as well as the maneuvers to get comfortable in that position on the left side is the etiology of the wound identified. Allergies: Coded Allergies: SULFA (SULFONAMIDE ANTIBIOTICS) (Verified Allergy, Unknown, 10/07/08) Medication History Scheduled Clopidogrel Bisulfate* (Plavix*), 75 MG ORAL DAILY, (Reported) Losartan Potassium* (Cozaar*), 25 MG ORAL DAILY, (Reported) Metformin Hcl* (Metformin Hcl*), 500 MG ORAL TWICE A DAY, (Reported) Oxybutynin Chloride (Ditropan Xl), 5 MG ORAL BID, (Reported) Scheduled PRN Diazepam* (Valium*), 5 MG ORAL DAILY PRN for ANXIETY, (Reported) Miscellaneous Medications Oxybutynin (Oxytrol For Women), 1 EACH TD, (Reported) Patient History History Provided By: Patient, Medical Record, PMD Healthcare decision maker Resuscitation status Advanced Directive on File No Past Medical/Surgical History Past Medical/Surgical History: (1) Fever (2) Volume depletion (3) Pyelonephritis (4) Rhabdomyolysis (5) Skin ulcer (6) Sepsis (7) Multiple sclerosis (8) B12 deficiency (9) Acute kidney injury Review of Systems Review of Symptoms General ROS: no weight loss or fever Psychological ROS: no depression or mood changes, no memory loss Ophthalmic ROS: no visual changes or eye irritation ENT ROS: no nasal congestion, hearing loss, dizziness Allergy and Immunology ROS: no allergic symptoms or urticaria Hematological and Lymphatic ROS: no swollen glands, unusual bleeding or bruising Endocrine ROS: no polyuria, polydipsia, weight changes, temperature intolerance Respiratory ROS: no cough, shortness of breath, or wheezing Cardiovascular ROS: no chest pain or dyspnea on exertion Gastrointestinal ROS: denies abdominal pain, bright red blood in stool. Musculoskeletal ROS: no myalgias or arthralgias Neurological ROS: no TIA or stroke symptoms Dermatological ROS: no new or changing skin lesions, rashes or pruritis Physical Exam Physical Exam General appearance: alert, cooperative, no distress, appears stated age Head: Normocephalic, without obvious abnormality, atraumatic Eyes: conjunctivae/corneas clear. PERRL, EOM's intact. Fundi benign Throat: Lips, mucosa, and tongue normal. Teeth and gums normal Neck: supple, symmetrical, trachea midline, no adenopathy, thyroid: not enlarged, symmetric, no tenderness/mass/nodules, no carotid bruit and no JVD Lungs: clear to auscultation bilaterally Heart: regular rate and rhythm, S1, S2 normal, no murmur, click, rub or gallop Abdomen: soft, non-tender. Bowel sounds normal. No masses, no organomegaly Extremities: extremities traumatic, no cyanosis or edema Pulses: 2+ and symmetric Skin: Skin color, texture, turgor normal. No rashes or lesions Neurologic: Grossly normal Last 24 Hour Vital Signs Date Time Temp Pulse Resp B/P (MAP) Pulse Ox O2 Delivery O2 Flow Rate FiO2 03/22/19 12:00 102 03/22/19 08:00 107 03/22/19 08:00 98.4 110 18 102/46 (64) 97 03/22/19 05:50 98.4 03/22/19 04:00 110 03/22/19 04:00 98.4 100 19 119/59 (79) 98 03/22/19 00:00 103 03/22/19 00:00 98.6 105 19 114/58 (76) 97 10/17/19 21:00 104 03/21/19 21:00 98.2 102 20 103/45 (64) 98 03/21/19 21:00 Room Air 03/21/19 20:35 99.1 103 18 108/56 98 Room Air 03/21/19 20:17 99.1 103 18 108/56 98 Room Air 03/21/19 20:12 99.1 03/21/19 19:14 125 18 Room Air 03/21/19 16:56 102.2 Intake and Output 03/21/19 03/22/19 18:59 06:59 Intake Total 2255 ml Output Total 450 ml 1050 ml Balance -450 ml 1205 ml IV Total 2255 ml Output Urine Total 450 ml 1050 ml Laboratory Tests Test 03/21/19 16:16 03/21/19 16:50 03/22/19 05:30 White Blood Count 10.9 K/UL (4.8-10.8) H 11.4 K/UL (4.8-10.8) H Red Blood Count 3.81 M/UL (4.20-5.40) L 3.35 M/UL (4.20-5.40) L Hemoglobin 11.2 G/DL (12.0-16.0) L 9.9 G/DL (12.0-16.0) L Hematocrit 33.4 % (37.0-47.0) L 29.4 % (37.0-47.0) L Mean Corpuscular Volume 88 FL (80-99) 88 FL (80-99) Mean Corpuscular Hemoglobin 29.4 PG (27.0-31.0) 29.6 PG (27.0-31.0) Mean Corpuscular Hemoglobin Concent 33.4 G/DL (32.0-36.0) 33.8 G/DL (32.0-36.0) Red Cell Distribution Width 12.1 % (11.6-14.8) 12.2 % (11.6-14.8) Platelet Count 315 K/UL (150-450) 285 K/UL (150-450) Mean Platelet Volume 6.6 FL (6.5-10.1) 6.4 FL (6.5-10.1) L Neutrophils (%) (Auto) 82.1 % (45.0-75.0) H 80.9 % (45.0-75.0) H Lymphocytes (%) (Auto) 9.4 % (20.0-45.0) L 9.3 % (20.0-45.0) L Monocytes (%) (Auto) 7.4 % (1.0-10.0) 7.8 % (1.0-10.0) Eosinophils (%) (Auto) 0.7 % (0.0-3.0) 1.6 % (0.0-3.0) Basophils (%) (Auto) 0.4 % (0.0-2.0) 0.4 % (0.0-2.0) Sodium Level 129 MMOL/L (136-145) L 134 MMOL/L (136-145) L Potassium Level 4.7 MMOL/L (3.5-5.1) 4.1 MMOL/L (3.5-5.1) Chloride Level 94 MMOL/L (98-107) L 101 MMOL/L (98-107) Carbon Dioxide Level 26 MMOL/L (21-32) 25 MMOL/L (21-32) Anion Gap 9 mmol/L (5-15) 9 mmol/L (5-15) Blood Urea Nitrogen 34 mg/dL (7-18) H 26 mg/dL (7-18) H Creatinine 1.2 MG/DL (0.55-1.30) 1.2 MG/DL (0.55-1.30) Estimat Glomerular Filtration Rate mL/min (>60) mL/min (>60) Glucose Level 165 MG/DL (74-106) H 136 MG/DL (74-106) H Lactic Acid Level 1.60 mmol/L (0.4-2.0) Calcium Level 9.0 MG/DL (8.5-10.1) 8.6 MG/DL (8.5-10.1) Magnesium Level 1.6 MG/DL (1.8-2.4) L 2.2 MG/DL (1.8-2.4) Total Bilirubin 0.3 MG/DL (0.2-1.0) 0.3 MG/DL (0.2-1.0) Aspartate Amino Transf (AST/SGOT) 45 U/L (15-37) H 34 U/L (15-37) Alanine Aminotransferase (ALT/SGPT) 27 U/L (12-78) 22 U/L (12-78) Alkaline Phosphatase 74 U/L (46-116) 66 U/L (46-116) Total Creatine Kinase 3017 U/L (26-308) H 1555 U/L (26-308) H Creatine Kinase MB 6.7 NG/ML (0.0-3.6) H Creatine Kinase MB Relative Index 0.2 Total Protein 7.4 G/DL (6.4-8.2) 6.1 G/DL (6.4-8.2) L Albumin 2.7 G/DL (3.4-5.0) L 2.2 G/DL (3.4-5.0) L Globulin 4.7 g/dL 3.9 g/dL Albumin/Globulin Ratio 0.6 (1.0-2.7) L 0.6 (1.0-2.7) L Urine Color Pale yellow Urine Appearance Cloudy Urine pH 8 (4.5-8.0) Urine Specific [place] 1.005 (1.005-1.035) Urine Protein 3+ (NEGATIVE) H Urine Glucose (UA) Negative (NEGATIVE) Urine Ketones Negative (NEGATIVE) Urine Blood 4+ (NEGATIVE) H Urine Nitrite Positive (NEGATIVE) H Urine Bilirubin Negative (NEGATIVE) Urine Urobilinogen Normal MG/DL (0.0-1.0) Urine Leukocyte Esterase 3+ (NEGATIVE) H Urine RBC Tntc /HPF (0 - 2) H Urine WBC Tntc /HPF (0 - 2) H Urine Squamous Epithelial Cells Occasional /LPF Urine Bacteria Many /HPF (NONE) H Erythrocyte Sedimentation Rate 109 MM/HR (0-30) H Hemoglobin A1c 6.0 % (4.3-6.0) Vitamin B12 Level 285 PG/ML (193-986) Microbiology Date/Time Source Procedure Growth Status 03/21/19 16:50 Urine,Clean Catch Urine Culture - Preliminary Gram Negative Bacillus 1 Resulted Height (Feet): 5 Height (Inches): 3.00 Weight (Pounds): 146 Medications Current Medications Medications (Trade) Dose Ordered Sig/Isaura Route PRN Reason Start Time Stop Time Status Last Admin Dose Admin Acetaminophen (Tylenol) 650 mg Q6H PRN ORAL Mild Pain/Temp > 100.5 03/21/19 22:30 04/20/19 22:29 03/22/19 05:05 Clopidogrel Bisulfate (Plavix) 75 mg DAILY ORAL 03/22/19 09:00 04/21/19 08:59 03/22/19 08:52 Dextrose (Dextrose 50%) 25 ml Q30M PRN IV Hypoglycemia 03/21/19 23:30 04/20/19 23:29 Dextrose (Dextrose 50%) 50 ml Q30M PRN IV Hypoglycemia 03/21/19 23:30 04/20/19 23:29 Diazepam (Valium) 5 mg DAILY PRN ORAL anxiety 03/21/19 22:30 03/28/19 22:29 Gadobutrol (Gadavist) 7.5 mmol NOW PRN IV Radiology Procedure 03/21/19 23:30 03/25/19 23:20 Gadobutrol (Gadavist) 7.5 mmol NOW PRN IV Radiology Procedure 03/21/19 23:30 03/25/19 23:20 Meropenem 1 gm/ Sodium Chloride 55 ml @ 110 mls/hr Q12H IVPB 03/22/19 05:00 03/27/19 04:59 03/22/19 05:44 Metformin HCl (Glucophage) 500 mg BID ORAL 03/21/19 22:30 04/20/19 22:29 03/22/19 08:52 Sodium Chloride 1,000 ml @ 70 mls/hr [id number] IV 03/21/19 22:30 04/20/19 22:29 03/21/19 23:24 Assessment/Plan Problem List: (1) Skin ulcer Assessment & Plan: Pt presented on admission with multiple skin injuries. Non- blanchable erythema without induration sacrum. Macular red rash noted to R groin and perineum. Pt denied burning or itching. traumatic injury L Ischium. Base of wound 95% yellow slough,5% necrotic. Erythema with shearing noted periwound. (L)3.4cm x (W)3cm. Pt stated due to fevers and weakness she has been unable to transfer to bed and has been sitting up in wheelchair continuously as well as lots of movement on the left ischium in her wheelchair. Pt stated she belives she has had wound for a week or so from trauma and pressure given recent events. DTPI noted to L trochanter. Wound is linear ,indurated and maroon in colour. Pt verbalized pain at site when minimally palpated.(L)11cm x (W)0.8cm. DTPI L heel extending into plantar aspect. Base of wound is maroon with purple area at plantar aspect. Pt stated she developed wound to heel approx 6 weeks ago.(L)5.8cm x (W)5cm. R heel is boggy with non-blanchable erythema. Non-tender when palpated. DTPI lateral R foot. Base of wound maroon with red tinged borders. (L)0.7cm x (W )0.5cm. Tx.Plan: Apply Cavilon Skin Barrier to L trochanter (Do Not Massage/Rub site). Cover with Optifoam drsg. Change every 7 days and prn. Cleanse wound L ischium with Saline.Apply Therahoney. Apply Cavilon periwound. Cover with Optifoam drsg every 3 days and prn. Apply Moisture Barrier Paste to Sacrum. Coover with Optifoam drsg. Change every 3 days and prn. Apply Cavilon Skin Barrier to R heel , Lateral R foot and L heel. Cover with Optifoam drsg. Change every 7 days and PRN. APM/CRYSTAL Mattress overlay. Reposition at least every 2hours or as tolerated. Off-load heels with pillow. ICD Codes: L98.499 - Non-pressure chronic ulcer of skin of other sites with unspecified severity SNOMED: 57960552 (2) Rhabdomyolysis Assessment & Plan: CK elevated and trending down fluids trend labs IMPRESSION: Cholelithiasis. No sonographic evidence to suggest acute cholecystitis. Sonographic Carroll sign reported as negative. * Pancreas obscured due to overlying bowel gas and not evaluated. * Distended bladder with a volume of 515 mL. Correlate for urinary retention. Mild layering debris noted within the bladder. Correlation with urinalysis recommended to assess for cystitis. ICD Codes: M62.82 - Rhabdomyolysis SNOMED: 855375009 (3) Fever ICD Codes: R50.9 - Fever, unspecified SNOMED: 414265818 (4) Volume depletion ICD Codes: E86.9 - Volume depletion, unspecified SNOMED: 09841187 (5) Pyelonephritis ICD Codes: N12 - Tubulo-interstitial nephritis, not specified as acute or chronic SNOMED: 17058018 (6) Sepsis ICD Codes: A41.9 - Sepsis, unspecified organism SNOMED: 43917206 (7) Multiple sclerosis ICD Codes: G35 - Multiple sclerosis SNOMED: 55655416 (8) B12 deficiency ICD Codes: E53.8 - Deficiency of other specified B group vitamins SNOMED: 444121166 (9) Acute kidney injury ICD Codes: N17.9 - Acute kidney failure, unspecified SNOMED: 1600025, [id number] Jamir Chang Mar 22, 2019 15:55
--- NOTE | 2019-03-22 15:56 | Diagnostic Imaging Report ---
Indication: Altered mental status. Weakness. Possible multiple sclerosis Technique: MRI the brain performed utilizing T1 sagittal, T2 axial, T1 FLAIR axial, T2 FLAIR axial, T2*GRE and diffusion axial images without gadolinium. Axial and coronal T1 images were obtained following administration of IV gadolinium Comparison: None Findings: No diffusion abnormalities are seen on diffusion weighted imaging. No focus of signal dropout on GRE to suggest acute intracranial hemorrhage. Small areas of encephalomalacia noted in the cerebellum, right larger the left compatible with small chronic infarcts. There is also a chronic lacunar infarct in the left thalamus and a punctate chronic lacunar infarct in the left caudate. The sulci, ventricles and cisterns are mildly prominent consistent with atrophy. Periventricular and supratentorial white matter T2 hyperintensity are seen without mass effect. There is no shift of midline structures. No abnormal mass effect. No focus of postcontrast enhancement No significant extra-axial collections of fluid or blood are demonstrated. Expected signal flow voids are seen of the vessels of the skull base. Trace fluid noted in the right mastoid air cells. Fluid is also noted within the bilateral maxillary sinuses. There is some mucosal thickening in the ethmoid air cells. IMPRESSION: No acute infarct. No acute intracranial hemorrhage, mass effect or midline shift. No focus of abnormal postcontrast enhancement. 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 Chronic lacunar infarcts in the left thalamus and left caudate. Atrophy and periventricular T2 signal hyperintensity without mass effect most likely on the basis of chronic microvascular ischemic changes.
[2019-03-22 16:00] VITALS: BP 145/62
--- NOTE | 2019-03-22 16:33 | Diagnostic Imaging Report ---
Indication: Neck pain Technique: MRI examination of the cervical spine was performed in a 1.5 [place] magnet. Sequences obtained include sagittal and axial T1 and T2 fast spin echo, and sagittal STIR. Sagittal and axial T1 images were also obtained following the administration of IV gadolinium Comparison: none Findings: Motion degraded exam. Bone marrow signal is homogeneous. Vertebral body heights are maintained. There is no evidence of acute fracture. No abnormal STIR signal abnormality noted within the osseous structures. The cervical lordosis is maintained. There is no evidence of spondylolisthesis. No abnormality is noted at the craniocervical junction. No focal cord signal abnormality is appreciated. Postcontrast images demonstrate no evidence of focal abnormal cord enhancement. There are are overall mild discogenic degenerative changes of the cervical spine. At C2-C3 there is a small central disc bulge without stenosis or significant central canal stenosis or foraminal narrowing. At C3 C4 a small disc bulge mildly indents the thecal sac. There is no associated significant central canal stenosis or significant foraminal narrowing at this level. At C4-C5 and C5-C6 hypertrophy ligamentum flavum and disc bulges results in mild to moderate central canal stenosis. There is also moderate to severe narrowing of the neural foramen on the left at C4-C5 and moderate to severe left and moderate right foraminal narrowing at C5-C6. At C6-C7 there is no significant central canal stenosis. A diffuse disc bulge results in mild bilateral foraminal narrowing at this level. IMPRESSION: Motion degraded exam No evidence to suggest demyelinating plaque within the cervical spine. No focus of abnormal postcontrast enhancement. No definite focal cord signal abnormality identified. Note that motion limits sensitive evaluation. Discogenic degenerative changes of the cervical spine most pronounced at C4-C5 and C5-C6 there is moderate central canal stenosis and apparent moderate to severe foraminal narrowing.
[2019-03-22] MEDS ORDERED: Vitamin B12 1000mcg/ml Inj IM SCH (17:00)
--- NOTE | 2019-03-22 18:00 | Consultation ---
DATE OF CONSULTATION: 03/22/2019 NEUROLOGY CONSULTATION CONSULTING PHYSICIAN: Onur Oneal M.D. REFERRING PHYSICIAN: Julian Tony M.D. HISTORY: Ms. Margaret Russell is a 73-year-old, right-handed, lady, who does have a past history of multiple medical problems including what has been labeled multiple sclerosis. She was functioning relatively well until age 27 when she suddenly developed problems with walking due to loss of sensation in her lower extremities. This loss of sensation rapidly spread into her upper extremities and she then started to become progressively weak more so in her lower extremities than in the upper extremities. She lost her ability to walk and she was diagnosed clinically with multiple sclerosis and given large doses of steroids. Following the steroids, she did improve as long as she was on the steroids but as soon as she got off them the weakness and altered sensations returned to the maximum. She became wheelchair-bound at that time, and has remained wheelchair bound ever since. She did have a lumbar puncture performed and she was told that the protein was high at that time. Ever since then, whenever she gets ill with any other problem, her weakness gets significantly worse. At her best, she is able to transfer from bed to wheelchair and vice versa, but when she gets sick with other things she loses that ability. In addition, she has had significant problems with bladder control ever since she has had the diagnosis of multiple sclerosis. She denies any problems with vision, hearing, speech and language, memory, or other neurological symptoms. In the interim, she has also developed hypertension, dyslipidemia, diabetes mellitus with neuropathy, detrusor hyperreflexia, two episodes of word-finding difficulty attributed to either cerebrovascular events or migraine, and has been also discovered to have a patent nicole ovale. Approximately four weeks prior to admission, she complained of increasing weakness, increased urinary incontinence and felt that she was no longer able to care for herself. At that time, metabolic evaluation revealed fairly normal laboratory tests, but her urinalysis revealed that she had a Citrobacter koseri urinary tract infection. She was treated with a seven- day course of Keflex and improved initially. However, approximately one week prior to admission, she again started to become progressively weaker and was having increasing problems with self-care. She also noticed increased urinary incontinence and started to have fevers. As a result of that, she presented to Dr. Tony's office on 03/21/2019 and when he evaluated her it was felt that she may have sepsis and as a result of that she was sent to the [facility] emergency room. When she was evaluated in the emergency room, she had a temperature elevated to 102 degrees Fahrenheit and laboratory data revealed significant pyuria, electrolyte imbalances, azotemia, hyponatremia, hypomagnesemia, and hyperglycemia. In addition her CK was also significantly elevated. She has since been admitted and started on intravenous fluids and antibiotics and feels a little better today. She, however, still has significant weakness in both her lower extremities as a result of which they are completely nonmobile. She tells me that she is able to move them minimally when she is well. 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 FAMILY HISTORY: Her mother and sister had cancer. Her mother also had some sort of mental illness. PERSONAL HISTORY: Home: She used to live with her for numerous years. He unfortunately approximately a year ago and since then she has been contemplating leaving her condominium and moving to an assisted living facility. 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 Habits: She drinks approximately 1 alcoholic drink/week. She used to smoke in the past for approximately 20 years, but stopped smoking numerous years ago. She denies use of any illicit drugs. MEDICATIONS AT HOME: Diazepam 2 mg tid for muscle spasm, metformin 500 mg bid, and oxybutynin 5 mg daily. MEDICATIONS AT THIS POINT OF TIME: Plavix, meropenem, Tylenol, magnesium sulfate, metformin, and Valium. PHYSICAL EXAMINATION: GENERAL: She is a well-developed and well-nourished, pleasant lady, lying in bed, in no acute distress. VITAL SIGNS: Pulse 110/minute, blood pressure 102/46 mmHg, respirations 18/minute, and temperature 98.4 degrees Fahrenheit. HEAD: Normocephalic and atraumatic. EENT: Examination benign. NECK: No neck rigidity was observed. NEUROLOGICAL EXAMINATION: MENTAL STATUS EXAMINATION: She was awake and alert. She was oriented to person, place, and time. She was able to recall 3/3 words immediately, after 1 and 3 minutes. She was able to remember presidents Trump through Irwin Oscar. Her mathematical skills were good. Her visuospatial function was preserved. SPEECH: She had no dysarthria. LANGUAGE: She had no aphasia. CRANIAL NERVE EXAMINATION: II: The visual brasher were intact on confrontation testing. III, IV & : The external ocular movements were full and the pupils 3 mm in diameter, equal, round, regular, and reactive to light. V: She had normal facial sensations, and the temporales, masseters, and pterygoids functioned normally. VII: She had normal facial expressions and no facial asymmetry. VIII: She was able to hear well bilaterally and had no nystagmus. IX: The palate moved symmetrically on phonation. X: She had no hoarseness of voice. XI: Sternocleidomastoids and trapezii function normally. XII: Tongue was in the midline without any fasciculations or atrophy. MOTOR SYSTEM: The tone was increased with significant spasticity in both lower extremities, more marked on the right than on the left. Examination of muscle mass revealed wasting of the small hand muscles in both upper extremities. In addition, significant wasting of muscles in both lower extremities was seen. She had bilateral knee cord contractures in flexion. Examination of power revealed G 5/5 power in both upper extremities and G 0/5 power in both lower extremities. SENSORY EXAMINATION: She was able to discern between pinprick and light touch all over her body, but complained of significant subjective decrease from the C2 level downwards. Position sense was diminished in the toes bilaterally but was normal in the fingers bilaterally. Graphesthesia was normal bilaterally. REFLEXES: 2+ and bilaterally symmetrical at the biceps, triceps, and brachioradialis. 3++ on the right and 3+ on the left at the knees. 4+ on the right and 1+ on the left at the ankles. The plantar response was extensor on the right and mute on the left. COORDINATION: She performed well on [id number] testing bilaterally. She was unable to perform [id number] testing. STANCE & GAIT: Could not be tested. DIAGNOSTIC IMPRESSION: 1. Ms. Margaret Russell is a 73-year-old, right-handed, lady, who does have a past history of multiple medical problems including what has been labeled multiple sclerosis. This has left her with sensory and motor dysfunction from the neck downwards and her being wheelchair bound since she had the illness numerous years ago. Over the years she has had worsening of weakness in the same distribution where the weakness first occurred, but no other involvement of the neuraxis. In the past, she has been worked up for this problem with a lumbar puncture and was told that she had multiple sclerosis. She has also had multiple episodes of urinary tract infections associated with worsening of her neurological symptoms. 2. Approximately four weeks ago, she developed a urinary tract infection with worsening of her neurological symptoms and was treated for it and improved significantly. However, in the last week or so she has had recurrence of her symptoms associated with urinary tract frequency and fevers. Since she has been hospitalized, she has been discovered to have a urinary tract infection and multiple electrolyte imbalances which have since been treated and she feels better today. 3. On neurological examination, at this time, she does have increased tone with spasticity in both lower extremities, more marked on the right than on the left, wasting of the small hand muscles, significant wasting of both lower extremities with bilateral knee cord contractures in flexion, a paraplegia, a C2 segmental sensory level, pathologically brisk knee jerks, which are brisker on the right than on the left, ankle clonus on the right side, an extensor plantar response on the right side with mute plantar response on the left side, inability to perform [id number] testing and inability to stand and walk. 4. Laboratory data obtained thus far have revealed that her WBC count is elevated to 11,400. She is anemic with a hemoglobin of 9.9 G. Her sodium on admission was low at 129. The chloride was low at 94. Her BUN was elevated at 34. Creatinine was at 1.2. Her blood glucose was elevated at 165. Hemoglobin A1c was at 6.0. Her CK on admission was 3017 and her albumin was low at 2.2. Her vitamin B12 level was also low at 285. Her urinalysis on admission revealed 3+ leukocyte esterase and too numerous to count red blood cells and white blood cells. 5. The patient's history, neurological examination, and laboratory data are most consistent with an underlying central nervous system neurological illness with paraparesis, altered sensations from her neck downwards and loss of ability to stand and walk, thought to be due to multiple sclerosis. However, by history, her disease has been relatively monophasic with the exacerbations and remissions of dysfunction in the same area over the years related to other illnesses. It is also unclear if her neurological illness represents transverse myelopathy or true multiple sclerosis. RECOMMENDATIONS: 1. Agree with management thus far. 2. Aggressive correction of the patient's infectious and metabolic imbalances. 3. We shall await the patient's MRI of the brain and cervical spine to determine where her central nervous system lesions are and if they do in fact represent multiple sclerosis or other [employer] GAS pathology. 4. Physical and occupational therapy should be started to rehabilitate the patient. 5. Further recommendations will be given following results of the imaging being obtained. Thank you for entrusting me with the care of Ms. Russell. I shall follow her with you. Onur Oneal M.D., M.S.P.H. DR: ERIN JOB#: [id number] BECKI
--- NOTE | 2019-03-22 18:37 | Infectious Diseases Prog Note ---
Assessment/Plan Assessment/Plan Full consult dictated: A) 1) gram neg uti/pyelonephritis, sepsis, fevers, leukocytosis, sirs 2) pmh noted - MS, hx uti, dm, htn, dyslipidemia 3) allergies - sulfa P) 1) meropenem 2) f/u on urine culture 3) monitor labs 4) thank you Subjective Allergies: Coded Allergies: SULFA (SULFONAMIDE ANTIBIOTICS) (Verified Allergy, Unknown, 10/07/08) Objective Vital Signs Last 24 Hour Vital Signs Date Time Temp Pulse Resp B/P (MAP) Pulse Ox O2 Delivery O2 Flow Rate FiO2 03/22/19 16:00 97.9 99 18 145/62 (89) 99 03/22/19 16:00 108 03/22/19 12:00 102 03/22/19 09:00 Room Air 03/22/19 08:00 107 03/22/19 08:00 98.4 110 18 102/46 (64) 97 03/22/19 05:50 98.4 03/22/19 04:00 110 03/22/19 04:00 98.4 100 19 119/59 (79) 98 03/22/19 00:00 103 03/22/19 00:00 98.6 105 19 114/58 (76) 97 03/21/19 21:00 104 03/21/19 21:00 98.2 102 20 103/45 (64) 98 03/21/19 21:00 Room Air 03/21/19 20:35 99.1 103 18 108/56 98 Room Air 03/21/19 20:17 99.1 103 18 108/56 98 Room Air 03/21/19 20:12 99.1 03/21/19 19:14 125 18 Room Air Height (Feet): 5 Height (Inches): 3.00 Weight (Pounds): 146 Microbiology Date/Time Source Procedure Growth Status 03/21/19 16:50 Urine,Clean Catch Urine Culture - Preliminary Gram Negative Bacillus 1 Resulted Laboratory Tests Test 03/22/19 05:30 White Blood Count 11.4 K/UL (4.8-10.8) H Red Blood Count 3.35 M/UL (4.20-5.40) L Hemoglobin 9.9 G/DL (12.0-16.0) L Hematocrit 29.4 % (37.0-47.0) L Mean Corpuscular Volume 88 FL (80-99) Mean Corpuscular Hemoglobin 29.6 PG (27.0-31.0) Mean Corpuscular Hemoglobin Concent 33.8 G/DL (32.0-36.0) Red Cell Distribution Width 12.2 % (11.6-14.8) Platelet Count 285 K/UL (150-450) Mean Platelet Volume 6.4 FL (6.5-10.1) L Neutrophils (%) (Auto) 80.9 % (45.0-75.0) H Lymphocytes (%) (Auto) 9.3 % (20.0-45.0) L Monocytes (%) (Auto) 7.8 % (1.0-10.0) Eosinophils (%) (Auto) 1.6 % (0.0-3.0) Basophils (%) (Auto) 0.4 % (0.0-2.0) Erythrocyte Sedimentation Rate 109 MM/HR (0-30) H Sodium Level 134 MMOL/L (136-145) L Potassium Level 4.1 MMOL/L (3.5-5.1) Chloride Level 101 MMOL/L (98-107) Carbon Dioxide Level 25 MMOL/L (21-32) Anion Gap 9 mmol/L (5-15) Blood Urea Nitrogen 26 mg/dL (7-18) H Creatinine 1.2 MG/DL (0.55-1.30) Estimat Glomerular Filtration Rate mL/min (>60) Glucose Level 136 MG/DL (74-106) H Hemoglobin A1c 6.0 % (4.3-6.0) Calcium Level 8.6 MG/DL (8.5-10.1) Magnesium Level 2.2 MG/DL (1.8-2.4) Total Bilirubin 0.3 MG/DL (0.2-1.0) Aspartate Amino Transf (AST/SGOT) 34 U/L (15-37) Alanine Aminotransferase (ALT/SGPT) 22 U/L (12-78) Alkaline Phosphatase 66 U/L (46-116) Total Creatine Kinase 1555 U/L (26-308) H Total Protein 6.1 G/DL (6.4-8.2) L Albumin 2.2 G/DL (3.4-5.0) L Globulin 3.9 g/dL Albumin/Globulin Ratio 0.6 (1.0-2.7) L Vitamin B12 Level 285 PG/ML (193-986) Current Medications Medications (Trade) Dose Ordered Sig/Isaura Route PRN Reason Start Time Stop Time Status Last Admin Dose Admin Acetaminophen (Tylenol) 650 mg Q6H PRN ORAL Mild Pain/Temp > 100.5 03/21/19 22:30 04/20/19 22:29 03/22/19 05:05 Clopidogrel Bisulfate (Plavix) 75 mg DAILY ORAL 03/22/19 09:00 04/21/19 08:59 03/22/19 08:52 Cyanocobalamin (Vitamin B12) 1,000 mcg ONCE IM 03/22/19 17:00 03/22/19 19:00 03/22/19 17:15 Dextrose (Dextrose 50%) 25 ml Q30M PRN IV Hypoglycemia 03/21/19 23:30 04/20/19 23:29 Dextrose (Dextrose 50%) 50 ml Q30M PRN IV Hypoglycemia 03/21/19 23:30 04/20/19 23:29 Diazepam (Valium) 5 mg DAILY PRN ORAL anxiety 03/21/19 22:30 03/28/19 22:29 Gadobutrol (Gadavist) 7.5 mmol NOW PRN IV Radiology Procedure 03/21/19 23:30 03/25/19 23:20 Gadobutrol (Gadavist) 7.5 mmol NOW PRN IV Radiology Procedure 03/21/19 23:30 03/25/19 23:20 Meropenem 1 gm/ Sodium Chloride 55 ml @ 110 mls/hr Q12H IVPB 03/22/19 05:00 03/27/19 04:59 03/22/19 17:17 Metformin HCl (Glucophage) 500 mg BID ORAL 03/21/19 22:30 04/20/19 22:29 03/22/19 17:15 Sodium Chloride 1,000 ml @ 70 mls/hr Q30H15U IV 03/21/19 22:30 04/20/19 22:29 03/22/19 17:15 Ronnie Bloom MD Mar 22, 2019 18:37
--- NOTE | 2019-03-22 18:45 | NUR ---
NURSE NOTES: Performed a bladder scan, shows urine amount of 262mls. No straight catheter is indicated at this time due to urine amount of less than 500mls.
--- NOTE | 2019-03-22 19:10 | NUR ---
HAND-OFF: Report given to Haim Morales RN. Pt is in stable condition, sitting up watching tv. Plan of care endorsed.
--- NOTE | 2019-03-22 19:30 | NUR ---
NURSE NOTES: Received patient from Jackie WEINER. Patient in bed, alert and oriented x4. On room air, no s/s respiratory distress. Right ac 20 gauge intact, patent, NS infusing at 70ml/hr, no signs of infilration. Patient on air mattress. Bed in low position, locked, bed alarm on, call light within reach.
[2019-03-22 20:00] VITALS: BP 142/63
--- NOTE | 2019-03-22 21:20 | NUR ---
NURSE NOTES: Bladder scan indicates a residual of 373-434ml. Will recheck.
--- NOTE | 2019-03-22 22:00 | Consultation ---
DATE OF CONSULTATION: 03/22/2019 INFECTIOUS DISEASE CONSULTATION CONSULTING PHYSICIAN: Ronnie Bloom M.D. ATTENDING PHYSICIAN: Julian Tony M.D. REFERRING PHYSICIAN: Julian Tony M.D. REASON FOR CONSULTATION: Complicated gram-negative urinary tract infection, pyelonephritis, leukocytosis, fever, and sepsis. CHIEF COMPLAINT: The patient's chief complaint coming in to the hospital is sepsis and pyelonephritis. HISTORY OF PRESENT ILLNESS: This is a very pleasant 73-year-old female, who comes in to [facility] and the patient had fever and chills. The patient has a history of positive urinalysis, likely has urinary tract infection with pyelonephritis, sepsis, leukocytosis, and fevers. Infectious Disease consultation was requested for antibiotic management. Per the records, the patient has history of UTIs and recurrent urinary tract infection. She has history of multiple sclerosis, but does not have a chronic Schaeffer. The patient looks like she has a history of I believe a Citrobacter urinary tract infection. Infectious Disease consultation is requested for antibiotic management. I have discussed the case with Dr. Guajardo. The patient currently is on meropenem. Urine culture so far has Gram-negative organisms. The patient will be continued on meropenem for gram-negative urinary tract infection, pyelonephritis, and sepsis for now. Case was discussed with the patient and questions were answered. Case discussed with the RN also. REVIEW OF SYSTEMS: CONSTITUTIONAL: She has generalized fatigue. No focal weakness. She came in with fevers, urinary incontinence that was worsening, weakness, fever, and chills. She came in with a temperature as high as 102.2 with chills. Other review of systems were increase in urinary frequency and again fatigue and increased generalized weakness. HEAD AND NECK: No head pain or neck pain. No thrush, dysphagia, or sinus tenderness. No neck stiffness. CARDIAC: No chest pain or palpitations. GASTROINTESTINAL: No nausea, vomiting, abdominal pain, or diarrhea. GENITOURINARY: She had increased frequency and dysuria. No hematuria mentioned. She also had noticeable more cloudy urine. She does not have a chronic Schaeffer. PULMONARY: No congestion or shortness of breath. Mild secretions. No hemoptysis. SKIN: No rash. She does have wounds. EXTREMITY: No extremity pain. NEUROLOGIC: No seizures. She does have generalized weakness that is worsened. No seizure activity, rash, or itching. PAST MEDICAL HISTORY: The patient's past medical history includes the following. The patient has a past medical history of recurrent urinary tract infection and weakness. She has history of urinary incontinence. She has history of multiple sclerosis. She has a history of hypertension. She has history of diabetes mellitus, neuropathy, dyslipidemia, and intermittent claudication. She has history of cellulitis. She has history of wounds. She history of detrusor hyperreflexia. She has history of CVA, migraines, and history of patent foramen ovale. MEDICATIONS: Upon reviewing the MAR, the patient is on the following medications. The patient is on meropenem 1 gram q.12 hours. She is on sodium chloride, acetaminophen, clopidogrel, cyanocobalamin, IV fluids, diazepam, Gadavist or gadobutrol. She is on metformin. Outside medications were noted and reconciliated. ALLERGIES: Include sulfa drugs. No penicillin allergy. SOCIAL HISTORY: Negative for smoking, alcohol, and drug abuse. FAMILY HISTORY: Positive for cancer. No history of tuberculosis. Also, family history is positive for diabetes and cardiac disease and stroke. PHYSICAL EXAMINATION: VITAL SIGNS: Temperature is 97.9, pulse rate 108, respiratory rate 18, blood pressure 145/62, and saturation 99%. T-max was 102.2 and heart rate was as high as 125. GENERAL: Alert and responsive, in no acute distress. HEAD AND NECK: Oral exam, no thrush. Eye exam, no icterus. Neck is supple. No JVD. Normocephalic. She has generalized weakness. She is alert, responsive, and oriented x3. HEART: Regular with a 1/6 systolic murmur and no friction rub. ABDOMEN: Soft. Positive bowel sounds. Nontender. LUNGS: Clear bilaterally. No rhonchi or rales. SKIN: No rash. MUSCULOSKELETAL: No effusion. Legs are without cellulitis. PERIPHERAL VASCULAR: No cyanosis. GENITOURINARY: She has no Schaeffer. No CVA tenderness. LINE SITES: Without phlebitis. NEUROLOGIC: General weakness and responsive. Wounds were noted and reviewed. I do not think there are acutely infected. No cellulitis noted. LABORATORY DATA: Lab data is as follows. White count 11.4 and hemoglobin 9.9. Creatinine is 1.2. Sodium 134 was 129. LFTs were noted. Urinalysis had 3+ leukocyte esterase, too many to count white blood cells, many bacteria. Urine culture greater than 100,000 gram negative bacilli. Chest x-ray showed no acute process. ASSESSMENT AND PLAN: 1. The patient has gram-negative urinary tract infection and pyelonephritis with fevers, leukocytosis, and what looks like sepsis, secondary to urinary tract infection and pyelonephritis. At this time, I agree with meropenem for gram-negative urinary tract infection and pyelonephritis coverage for sepsis. Continue meropenem. Check urine culture results. I believe the patient has been on oral antibiotics for previous and recurrent UTIs. Also monitor sepsis status and monitor leukocytosis and fevers. 2. The patient has a history of multiple sclerosis. 3. Weakness. 4. History of recurrent urinary tract infection. 5. Hypertension. 6. Diabetes. 7. Blood sugar and blood pressure treatment for diabetes and hypertension per primary. 8. Dyslipidemia. 9. Wound care protocol and surgery. 10. . 11. History of cellulitis. 12. History of hyperreflexia. 13. History of CVA. 14. History of patent foramina ovale. 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 16. Allergies to sulfa drugs. No penicillin allergy. 17. Social history is negative. 18. Family history is positive for cancer and stroke and cardiac disease. 19. MAR is noted. 20. Case was discussed with RN. 21. Case was discussed with Dr. Tony. 22. Continue treatment per Dr. Tony and consultants. 23. Notes and records were noted. 24. Ordered were entered. Ronnie Bloom M.D. DR: ZAK JOB#: [id number] CC:
--- NOTE | 2019-03-22 22:46 | NUR ---
NURSE NOTES: Bladder scan 536ml residual. Patient refused to be straight cathed at this time and wants to wait another hour.
[2019-03-23] VITALS: BP 115/54
--- NOTE | 2019-03-23 | NUR ---
NURSE NOTES: Straight cathed patient, obtained 700ml of output.
[2019-03-23 04:00] VITALS: BP 134/59
[2019-03-23] MEDS: Meropenem 1 GM in NS 55 ML IVPB SCH ×2 (04:04→17:45)
--- NOTE | 2019-03-23 06:00 | NUR ---
NURSE NOTES: Bladder scan 393 ml.
--- NOTE | 2019-03-23 07:20 | NUR ---
NURSE NOTES: I received the patient awake and resting in bed. Patient alert and oriented x4. Patient did not display any signs of distress or SOB. Patient reposition in bed. Bed in the lowest position and call light within reach.
[2019-03-23 07:34] LABS: BASOPHILS % (AUTO) 0.4 % (0.0-2.0); EOSINOPHILS % (AUTO) 3.3 % (0.0-3.0); HEMATOCRIT 26.1 % (37.0-47.0); HEMOGLOBIN 8.7 G/DL (12.0-16.0); LYMPHOCYTES % (AUTO) 11.9 % (20.0-45.0); MEAN CORPUSCULAR VOLUME 89 FL (80-99); MONOCYTES % (AUTO) 7.9 % (1.0-10.0); NEUTROPHILS % (AUTO) 76.6 % (45.0-75.0); PLATELET COUNT 286 K/UL (150-450); RED BLOOD COUNT 2.94 M/UL (4.20-5.40); RED CELL DISTRIBUTION WIDTH 12.7 % (11.6-14.8); WHITE BLOOD COUNT 9.3 K/UL (4.8-10.8)
--- NOTE | 2019-03-23 07:47 | NUR ---
HAND-OFF: Report given to Joanne Prado. Plan of care endorsed.
[2019-03-23 07:54] LABS: ALANINE AMINOTRANSFERASE 28 U/L (12-78); ALBUMIN 1.8 G/DL (3.4-5.0); ALBUMIN/GLOBULIN RATIO 0.5 (1.0-2.7); ALKALINE PHOSPHATASE 62 U/L (46-116); ANION GAP 8 mmol/L (5-15); ASPARTATE AMINO TRANSFERASE 31 U/L (15-37); BILIRUBIN,TOTAL 0.2 MG/DL (0.2-1.0); BLOOD UREA NITROGEN 18 mg/dL (7-18); CALCIUM 8.4 MG/DL (8.5-10.1); CARBON DIOXIDE 26 MMOL/L (21-32); CHLORIDE 106 MMOL/L (98-107); POTASSIUM 3.8 MMOL/L (3.5-5.1); SODIUM 140 MMOL/L (136-145)
[2019-03-23 08:00] VITALS: BP 125/52
[2019-03-23] MEDS: metFORMIN 500mg tab ORAL SCH ×2 (09:08→17:45)
--- NOTE | 2019-03-23 10:29 | Surgery Progress Note ---
Surgery Progress Note Subjective Additional Comments No acute events. Leukocytosis improved. Resting comfortably. No nausea vomiting fever chills Objective Last 24 Hour Vital Signs Date Time Temp Pulse Resp B/P (MAP) Pulse Ox O2 Delivery O2 Flow Rate FiO2 03/23/19 08:00 97.9 80 18 125/52 (76) 98 03/23/19 04:00 92 03/23/19 04:00 98.1 90 18 134/59 (84) 98 03/23/19 00:00 98.2 109 18 115/54 (74) 97 03/23/19 00:00 105 03/22/19 20:41 Room Air 03/22/19 20:34 98.4 03/22/19 20:00 110 03/22/19 20:00 98.4 110 17 142/63 (89) 98 03/22/19 16:00 97.9 99 18 145/62 (89) 99 03/22/19 16:00 108 03/22/19 12:00 102 I&O Intake and Output 03/22/19 03/23/19 19:00 07:00 Intake Total 680 ml 240 ml Output Total 700 ml Balance 680 ml -460 ml Intake Oral 120 ml 240 ml IV Total 560 ml Output Urine Total 700 ml # Voids 2 Dressing: saturated Wound: clean, other Cardiovascular: RSR Respiratory: clear Abdomen: soft, non-tender, present bowel sounds Extremities: edema, no tenderness, no cyanosis Laboratory Tests Test 03/23/19 06:20 White Blood Count 9.3 K/UL (4.8-10.8) Red Blood Count 2.94 M/UL (4.20-5.40) L Hemoglobin 8.7 G/DL (12.0-16.0) L Hematocrit 26.1 % (37.0-47.0) L Mean Corpuscular Volume 89 FL (80-99) Mean Corpuscular Hemoglobin 29.8 PG (27.0-31.0) Mean Corpuscular Hemoglobin Concent 33.5 G/DL (32.0-36.0) Red Cell Distribution Width 12.7 % (11.6-14.8) Platelet Count 286 K/UL (150-450) Mean Platelet Volume 5.9 FL (6.5-10.1) L Neutrophils (%) (Auto) 76.6 % (45.0-75.0) H Lymphocytes (%) (Auto) 11.9 % (20.0-45.0) L Monocytes (%) (Auto) 7.9 % (1.0-10.0) Eosinophils (%) (Auto) 3.3 % (0.0-3.0) H Basophils (%) (Auto) 0.4 % (0.0-2.0) Sodium Level 140 MMOL/L (136-145) Potassium Level 3.8 MMOL/L (3.5-5.1) Chloride Level 106 MMOL/L (98-107) Carbon Dioxide Level 26 MMOL/L (21-32) Anion Gap 8 mmol/L (5-15) Blood Urea Nitrogen 18 mg/dL (7-18) Creatinine 1.0 MG/DL (0.55-1.30) Estimat Glomerular Filtration Rate mL/min (>60) Glucose Level 114 MG/DL (74-106) H Calcium Level 8.4 MG/DL (8.5-10.1) L Total Bilirubin 0.2 MG/DL (0.2-1.0) Aspartate Amino Transf (AST/SGOT) 31 U/L (15-37) Alanine Aminotransferase (ALT/SGPT) 28 U/L (12-78) Alkaline Phosphatase 62 U/L (46-116) Total Protein 5.4 G/DL (6.4-8.2) L Albumin 1.8 G/DL (3.4-5.0) L Globulin 3.6 g/dL Albumin/Globulin Ratio 0.5 (1.0-2.7) L Plan Problems: (1) Skin ulcer Assessment & Plan: Pt presented on admission with multiple skin injuries. Non- blanchable erythema without induration sacrum. Macular red rash noted to R groin and perineum. Pt denied burning or itching. traumatic injury L Ischium. Base of wound 95% yellow slough,5% necrotic. Erythema with shearing noted periwound. (L)3.4cm x (W)3cm. Pt stated due to fevers and weakness she has been unable to transfer to bed and has been sitting up in wheelchair continuously as well as lots of movement on the left ischium in her wheelchair. Pt stated she belives she has had wound for a week or so from trauma and pressure given recent events. DTPI noted to L trochanter. Wound is linear ,indurated and maroon in colour. Pt verbalized pain at site when minimally palpated.(L)11cm x (W)0.8cm. DTPI L heel extending into plantar aspect. Base of wound is maroon with purple area at plantar aspect. Pt stated she developed wound to heel approx 6 weeks ago.(L)5.8cm x (W)5cm. R heel is boggy with non-blanchable erythema. Non-tender when palpated. DTPI lateral R foot. Base of wound maroon with red tinged borders. (L)0.7cm x (W )0.5cm. Tx.Plan: Apply Cavilon Skin Barrier to L trochanter (Do Not Massage/Rub site). Cover with Optifoam drsg. Change every 7 days and prn. Cleanse wound L ischium with Saline.Apply Therahoney. Apply Cavilon periwound. Cover with Optifoam drsg every 3 days and prn. Apply Moisture Barrier Paste to Sacrum. Coover with Optifoam drsg. Change every 3 days and prn. Apply Cavilon Skin Barrier to R heel , Lateral R foot and L heel. Cover with Optifoam drsg. Change every 7 days and PRN. APM/CRYSTAL Mattress overlay. Reposition at least every 2hours or as tolerated. Off-load heels with pillow. (2) Rhabdomyolysis Assessment & Plan: CK elevated and trending down fluids trend labs IMPRESSION: Cholelithiasis. No sonographic evidence to suggest acute cholecystitis. Sonographic Carroll sign reported as negative. * Pancreas obscured due to overlying bowel gas and not evaluated. * Distended bladder with a volume of 515 mL. Correlate for urinary retention. Mild layering debris noted within the bladder. Correlation with urinalysis recommended to assess for cystitis. (3) Fever (4) Volume depletion (5) Pyelonephritis (6) Sepsis (7) Multiple sclerosis (8) B12 deficiency (9) Acute kidney injury Jamir Chang Mar 23, 2019 10:29
--- NOTE | 2019-03-23 11:27 | Diagnostic Imaging Report ---
Indication: Pelvic pain, leukocytosis Technique: Transabdominal and transvaginal images of the pelvis. Doppler interrogation of the bilateral ovaries Comparison: none Findings: Uterus measures 6.2 cm length by 2.6 cm AP. The endometrium measures 3 mm thick, best appreciated on the transabdominal images. There is a 2.7 cm hypoechoic area in the uterine fundus, probably a fibroid. The left ovary measures 3.4 cm in length. The right ovary measures 3.8 cm in length. It demonstrates a 2 cm simple cyst. No free cul-de-sac fluid is demonstrated. Impression: Probable small uterine fibroid 2 cm right ovarian simple cyst is almost certainly benign. Annual sonographic follow-up should be considered This agrees with the preliminary interpretation provided overnight by [facility] service.
[2019-03-23 12:00] VITALS: BP 111/55
[2019-03-23 16:00] VITALS: BP 131/62
--- NOTE | 2019-03-23 16:15 | Neurology Progress Note ---
Interim History Interim History Interim History Ms. Russell feels better today. She worked with the PT earlier and feels that her legs are more functional. The sensations over her body have also improved. She has not noted any new neurologic symptoms. She also denies any fevers or other constitutional symptoms. Review of Systems Neuro Review of Systems Benign. Objective Physical Exam Last Vital Signs Date Time Temp Pulse Resp B/P (MAP) Pulse Ox O2 Delivery O2 Flow Rate FiO2 03/23/19 12:00 97.2 85 20 111/55 (73) 98 03/23/19 09:00 Room Air Laboratory Tests Test 03/23/19 06:20 White Blood Count 9.3 K/UL (4.8-10.8) Red Blood Count 2.94 M/UL (4.20-5.40) L Hemoglobin 8.7 G/DL (12.0-16.0) L Hematocrit 26.1 % (37.0-47.0) L Mean Corpuscular Volume 89 FL (80-99) Mean Corpuscular Hemoglobin 29.8 PG (27.0-31.0) Mean Corpuscular Hemoglobin Concent 33.5 G/DL (32.0-36.0) Red Cell Distribution Width 12.7 % (11.6-14.8) Platelet Count 286 K/UL (150-450) Mean Platelet Volume 5.9 FL (6.5-10.1) L Neutrophils (%) (Auto) 76.6 % (45.0-75.0) H Lymphocytes (%) (Auto) 11.9 % (20.0-45.0) L Monocytes (%) (Auto) 7.9 % (1.0-10.0) Eosinophils (%) (Auto) 3.3 % (0.0-3.0) H Basophils (%) (Auto) 0.4 % (0.0-2.0) Sodium Level 140 MMOL/L (136-145) Potassium Level 3.8 MMOL/L (3.5-5.1) Chloride Level 106 MMOL/L (98-107) Carbon Dioxide Level 26 MMOL/L (21-32) Anion Gap 8 mmol/L (5-15) Blood Urea Nitrogen 18 mg/dL (7-18) Creatinine 1.0 MG/DL (0.55-1.30) Estimat Glomerular Filtration Rate mL/min (>60) Glucose Level 114 MG/DL (74-106) H Calcium Level 8.4 MG/DL (8.5-10.1) L Total Bilirubin 0.2 MG/DL (0.2-1.0) Aspartate Amino Transf (AST/SGOT) 31 U/L (15-37) Alanine Aminotransferase (ALT/SGPT) 28 U/L (12-78) Alkaline Phosphatase 62 U/L (46-116) Total Protein 5.4 G/DL (6.4-8.2) L Albumin 1.8 G/DL (3.4-5.0) L Globulin 3.6 g/dL Albumin/Globulin Ratio 0.5 (1.0-2.7) L Neurologic Exam Objective PHYSICAL EXAMINATION: GENERAL: She is a well-developed and well-nourished, pleasant lady, lying in bed, in no acute distress. HEAD: Normocephalic and atraumatic. EENT: Examination benign. NECK: No neck rigidity was observed. NEUROLOGICAL EXAMINATION: MENTAL STATUS EXAMINATION: She was awake and alert. She was oriented to person, place, and time. She was able to recall 3/3 words immediately, after 1 and 3 minutes. She was able to remember presidents Tr5by through Irwin Oscar. Her mathematical skills were good. Her visuospatial function was preserved. SPEECH: She had no dysarthria. LANGUAGE: She had no aphasia. CRANIAL NERVE EXAMINATION: II: The visual brasher were intact on confrontation testing. III, IV & : The external ocular movements were full and the pupils 3 mm in diameter, equal, round, regular, and reactive to light. V: She had normal facial sensations, and the temporales, masseters, and pterygoids functioned normally. VII: She had normal facial expressions and no facial asymmetry. VIII: She was able to hear well bilaterally and had no nystagmus. IX: The palate moved symmetrically on phonation. X: She had no hoarseness of voice. XI: Sternocleidomastoids and trapezii function normally. XII: Tongue was in the midline without any fasciculations or atrophy. MOTOR SYSTEM: The tone was increased with significant spasticity in both lower extremities, more marked on the right than on the left. Examination of muscle mass revealed wasting of the small hand muscles in both upper extremities. In addition, significant wasting of muscles in both lower extremities was seen. She had bilateral knee cord contractures in flexion. Examination of power revealed G 5/5 power in both upper extremities and G 0/5 power in both lower extremities, except for G 2/5 in the right ankle and iliopsoas. SENSORY EXAMINATION: She was able to discern between pinprick and light touch all over her body, but complained of significant subjective decrease from the C2 level downwards. Position sense was diminished in the toes bilaterally but was normal in the fingers bilaterally. Graphesthesia was normal bilaterally. REFLEXES: 2+ and bilaterally symmetrical at the biceps, triceps, and brachioradialis. 3++ on the right and 3+ on the left at the knees. 4+ on the right and 1+ on the left at the ankles. The plantar response was extensor on the right and mute on the left. COORDINATION: She performed well on [id number] testing bilaterally. She was unable to perform [id number] testing. STANCE & GAIT: Could not be tested. Impression/Recommendations Diagnostic Impression 1. Ms. Margaret Russell is a 73-year-old, right-handed, lady, who does have a past history of multiple medical problems including what has been labeled multiple sclerosis. This has left her with sensory and motor dysfunction from the neck downwards and her being wheelchair bound since she had the illness numerous years ago. Over the years she has had worsening of weakness in the same distribution where the weakness first occurred, but no other involvement of the neuraxis. In the past, she has been worked up for this problem with a lumbar puncture and was told that she had multiple sclerosis. She has also had multiple episodes of urinary tract infections associated with worsening of her neurological symptoms. 2. Approximately four weeks ago, she developed a urinary tract infection with worsening of her neurological symptoms and was treated for it and improved significantly. However, in the last week or so she has had recurrence of her symptoms associated with urinary tract frequency and fevers. Since she has been hospitalized, she has been discovered to have a urinary tract infection and multiple electrolyte imbalances which have since been treated and she feels better. 3. She feels better today. She worked with the PT earlier and feels that her legs are more functional. The sensations over her body have also improved. She has not noted any new neurologic symptoms. She also denies any fevers or other constitutional symptoms. 4. On neurological examination, at this time, she does have increased tone with spasticity in both lower extremities, more marked on the right than on the left , wasting of the small hand muscles, significant wasting of both lower extremities with bilateral knee cord contractures in flexion, her paraplegia has improved with motor function returning to the right lower extremity, a C2 segmental sensory level, pathologically brisk knee jerks, which are brisker on the right than on the left, ankle clonus on the right side, an extensor plantar response on the right side with mute plantar response on the left side, inability to perform [id number] testing and inability to stand and walk. 5. Laboratory data on my initial evaluation revealed that her WBC count is elevated to 11,400. She is anemic with a hemoglobin of 9.9 G. Her sodium on admission was low at 129. The chloride was low at 94. Her BUN was elevated at 34. Creatinine was at 1.2. Her blood glucose was elevated at 165. Hemoglobin A1c was at 6.0. Her CK on admission was 3017 and her albumin was low at 2.2. Her vitamin B12 level was also low at 285. Her urinalysis on admission revealed 3+ leukocyte esterase and too numerous to count red blood cells and white blood cells. 6. The MRI of the Brain without and with gadolinium done on 03/22/19 revealed no acute pathology. No acute intracranial hemorrhage, mass effect or midline shift. No focus of abnormal postcontrast enhancement. Small chronic infarcts in the bilateral cerebellar hemispheres, left thalamus and left caudate were seen. Atrophy and periventricular T2 signal hyperintensity without mass effect most likely on the basis of chronic microvascular ischemic changes were seen. 7. The MRI of the C-spine without and with gadolinium done on 03/22/19 revealed no evidence to suggest demyelinating plaque within the cervical spine. No focus of abnormal postcontrast enhancement. No definite focal cord signal abnormality identified. Discogenic degenerative changes of the cervical spine most pronounced at C4-C5 and C5-C6 with moderate central canal stenosis and apparent moderate to severe foraminal narrowing was noted. 8. The patient's history, neurological examination, and laboratory data are most consistent with an underlying central nervous system neurological illness with paraparesis, altered sensations from her neck downwards and loss of ability to stand and walk , thought to be due to multiple sclerosis. However, by history, her disease has been relatively monophasic with the exacerbations and remissions of dysfunction in the same area over the years related to other illnesses. It is also unclear if her neurological illness represents transverse myelopathy or true multiple sclerosis. However no acute pathology is seen at this time. Recommendations 1. Continue present management. 2. Continue correction of the patient's infectious and metabolic imbalances. 3. Physical and occupational therapy to rehabilitate the patient. 4. Observe closely. Onur Oneal M.D., M.S.P.H. Onur Oneal MD Mar 23, 2019 16:15
--- NOTE | 2019-03-23 16:17 | NUR ---
PT Note PT chaz completed, treatment initiated. Patient c/o severe spasticity in BLE's as she is not on any anti-spasticity meds and is unable to sit/transfer to/from the . Patient needs PT to increase UE strength, LE ROM and to increase her sitting balance to improve her functional mobility to [facility] to enable her to return to [facility]. Addendum: 03/23/19 at 1618 by KEREN VILLAREAL PT Amended: Links added.
--- NOTE | 2019-03-23 17:02 | Geriatric Progress Note ---
Assessment/Plan Problems: (1) Acute kidney injury (2) Volume depletion (3) Rhabdomyolysis (4) Skin ulcer (5) B12 deficiency (6) Multiple sclerosis (7) Pyelonephritis (8) Sepsis (9) Transverse myelitis Assessment/Plan UTI without bacteremia. Will narrow antibiotic spectrum per Dr. Bloom. Begin urecholine for bladder emptying. ?transverse myelitis vs. multiple sclerosis. Mobilize with P.T. Resume Baclofen. Benzodiazepine use, taper Valium, convert to either shorter acting benzodiazepine or alternative agent. Skin ulcers as per Dr. Chang's note. Continue current regimen. Decrease IV rate as po intake improves. Discussed transfer to SNF for rehab, skin care at d/c. Patient amenable. Discussed with: patient, hospital staff Subjective Interval Events Patient alert, feeling better, but with myalgias, some spasms. Needs to resume Baclofen. Denies other new sxs. Staff notes good intake, bm yesterday. Bladder volumes remain elevated. Urine with Providencia rettgeri. Likely can narrow spectrum to Ceftriaxone and/ or aminoglycoside. Will review with Dr. Bloom. Note significant hypoalbuminemia. Discussed with Dr. Oneal. Dx may be transverse myelitis, not MS. Tends to display increased weakness with episodes of acute illness. Reviewed use of Valium with patient. Agreeable to attempting to titrating downward. Reviewed trial of urecholine to empty bladder. Agreeable. Constitutional: Denies: chills, sweats, fever Respiratory: Denies: cough, shortness of breath Cardiovascular: Denies: chest pain, palpitations Gastrointestinal/Abdominal: Denies: diarrhea, nausea Genitourinary: Denies: dysuria Neurologic: Reports: other - spasms, myalgia. Geriatric Geriatric Last 24 Hour Vital Signs Date Time Temp Pulse Resp B/P (MAP) Pulse Ox O2 Delivery O2 Flow Rate FiO2 03/23/19 16:00 98.4 89 19 131/62 (85) 98 03/23/19 12:00 97.2 85 20 111/55 (73) 98 03/23/19 11:23 84 03/23/19 09:39 97.9 03/23/19 09:00 Room Air 03/23/19 08:00 97.9 80 18 125/52 (76) 98 03/23/19 07:38 91 03/23/19 04:00 92 03/23/19 04:00 98.1 90 18 134/59 (84) 98 03/23/19 00:00 98.2 109 18 115/54 (74) 97 03/23/19 00:00 105 03/22/19 20:41 Room Air 03/22/19 20:00 110 03/22/19 20:00 98.4 110 17 142/63 (89) 98 Intake and Output 03/22/19 03/23/19 18:59 06:59 Intake Total 1160 ml 120 ml Output Total 900 ml 700 ml Balance 260 ml -580 ml Intake Oral 600 ml 120 ml IV Total 560 ml Output Urine Total 900 ml 700 ml # Voids 2 Laboratory Tests Test 03/23/19 06:20 White Blood Count 9.3 K/UL (4.8-10.8) Red Blood Count 2.94 M/UL (4.20-5.40) L Hemoglobin 8.7 G/DL (12.0-16.0) L Hematocrit 26.1 % (37.0-47.0) L Mean Corpuscular Volume 89 FL (80-99) Mean Corpuscular Hemoglobin 29.8 PG (27.0-31.0) Mean Corpuscular Hemoglobin Concent 33.5 G/DL (32.0-36.0) Red Cell Distribution Width 12.7 % (11.6-14.8) Platelet Count 286 K/UL (150-450) Mean Platelet Volume 5.9 FL (6.5-10.1) L Neutrophils (%) (Auto) 76.6 % (45.0-75.0) H Lymphocytes (%) (Auto) 11.9 % (20.0-45.0) L Monocytes (%) (Auto) 7.9 % (1.0-10.0) Eosinophils (%) (Auto) 3.3 % (0.0-3.0) H Basophils (%) (Auto) 0.4 % (0.0-2.0) Sodium Level 140 MMOL/L (136-145) Potassium Level 3.8 MMOL/L (3.5-5.1) Chloride Level 106 MMOL/L (98-107) Carbon Dioxide Level 26 MMOL/L (21-32) Anion Gap 8 mmol/L (5-15) Blood Urea Nitrogen 18 mg/dL (7-18) Creatinine 1.0 MG/DL (0.55-1.30) Estimat Glomerular Filtration Rate mL/min (>60) Glucose Level 114 MG/DL (74-106) H Calcium Level 8.4 MG/DL (8.5-10.1) L Total Bilirubin 0.2 MG/DL (0.2-1.0) Aspartate Amino Transf (AST/SGOT) 31 U/L (15-37) Alanine Aminotransferase (ALT/SGPT) 28 U/L (12-78) Alkaline Phosphatase 62 U/L (46-116) Total Protein 5.4 G/DL (6.4-8.2) L Albumin 1.8 G/DL (3.4-5.0) L Globulin 3.6 g/dL Albumin/Globulin Ratio 0.5 (1.0-2.7) L Current Medications Medications (Trade) Dose Ordered Sig/Isaura Route PRN Reason Start Time Stop Time Status Last Admin Dose Admin Acetaminophen (Tylenol) 650 mg Q6H PRN ORAL Mild Pain/Temp > 100.5 03/21/19 22:30 04/20/19 22:29 03/23/19 14:54 Clopidogrel Bisulfate (Plavix) 75 mg DAILY ORAL 03/22/19 09:00 04/21/19 08:59 03/23/19 09:08 Dextrose (Dextrose 50%) 25 ml Q30M PRN IV Hypoglycemia 03/21/19 23:30 04/20/19 23:29 Dextrose (Dextrose 50%) 50 ml Q30M PRN IV Hypoglycemia 03/21/19 23:30 04/20/19 23:29 Diazepam (Valium) 5 mg DAILY PRN ORAL anxiety 03/21/19 22:30 03/28/19 22:29 Gadobutrol (Gadavist) 7.5 mmol NOW PRN IV Radiology Procedure 03/21/19 23:30 03/25/19 23:20 Gadobutrol (Gadavist) 7.5 mmol NOW PRN IV Radiology Procedure 03/21/19 23:30 03/25/19 23:20 Meropenem 1 gm/ Sodium Chloride 55 ml @ 110 mls/hr Q12H IVPB 03/22/19 05:00 03/27/19 04:59 10/19/19 04:04 Metformin HCl (Glucophage) 500 mg BID ORAL 03/21/19 22:30 04/20/19 22:29 03/23/19 09:08 Sodium Chloride 1,000 ml @ 70 mls/hr [id number] IV 03/21/19 22:30 04/20/19 22:29 03/23/19 04:03 Height (Feet): 5 Height (Inches): 3.00 Weight (Pounds): 146 General Appearance: no apparent distress, alert, non-toxic Head: normocephalic, atraumatic Eyes: bilateral anicteric ENT: normal voice Neck: full range of motion, no mass Respiratory: lungs clear Cardiovascular: regular rate, rhythm Gastrointestinal: normal bowel sounds, non tender, soft, no mass, no organomegaly Musculoskeletal: no calf tenderness, decreased range of motion, other Edema: no edema noted Generalized Neurologic: no new focality Julian Tony MD Mar 23, 2019 17:02
[2019-03-23] MEDS: Bethanechol 10mg Tab ORAL SCH ×2 (17:45→20:12)
--- NOTE | 2019-03-23 19:20 | NUR ---
HAND-OFF: Report given to Swapnil Brown RN. Patient resting in bed and in stable condition.
--- NOTE | 2019-03-23 19:21 | NUR ---
NURSE NOTES: Received report from HUSAM Rubio. Patient is awake, lying in semi-felix's; resting comfortably. A/Ox4. Denies pain at this time. No signs of acute cardiorespiratory distress noted. Checked IV site and flushed. No erythema, bleeding or infiltration noted. On P200 mattress for wound management. Bed at lowest position, brakes on, siderails x3. Call light within reach. Will continue to monitor.
[2019-03-23 20:00] VITALS: BP 133/66
[2019-03-24] VITALS: BP 145/93
--- NOTE | 2019-03-24 01:15 | NUR ---
NURSE NOTES: Bladder scan done which revealed +999ml. Straight cath was done, obtained 1600ml of urine output, cloudy yellow urine.
--- NOTE | 2019-03-24 01:28 | NUR ---
NURSE NOTES: Resting throughout the night. No significant change of condition noted. Will continue to monitor.
[2019-03-24 04:00] VITALS: BP 139/76
[2019-03-24] MEDS: Meropenem 1 GM in NS 55 ML IVPB SCH (05:18)
--- NOTE | 2019-03-24 06:30 | NUR ---
NURSE NOTES: Bladder scan done which revealed 886ml, with a urine output of 700ml. Addendum: 03/24/19 at 0740 by Kemi Brown RN straight catheter done with a urine output of 700ml, draining to a clear urine.
--- NOTE | 2019-03-24 07:15 | NUR ---
NURSE NOTES: I received the patient awake and resting in bed. Patient alert and oriented x4. Bed in the lowest position and call light within reach. Patient does not display any signs of distress. I will continue to monitor the patient and implement care.
--- NOTE | 2019-03-24 07:20 | NUR ---
HAND-OFF: Report given to HUSAM Rubio. Plan of care endorsed.
[2019-03-24 07:49] LABS: BASOPHILS % (AUTO) 0.5 % (0.0-2.0); HEMATOCRIT 27.1 % (37.0-47.0); HEMOGLOBIN 9.3 G/DL (12.0-16.0); LYMPHOCYTES % (AUTO) 12.5 % (20.0-45.0); MEAN CORPUSCULAR VOLUME 87 FL (80-99); MONOCYTES % (AUTO) 5.7 % (1.0-10.0); NEUTROPHILS % (AUTO) 78.2 % (45.0-75.0); PLATELET COUNT 325 K/UL (150-450); RED BLOOD COUNT 3.11 M/UL (4.20-5.40); RED CELL DISTRIBUTION WIDTH 11.3 % (11.6-14.8); WHITE BLOOD COUNT 9.2 K/UL (4.8-10.8)
[2019-03-24 08:00] VITALS: BP 163/77
[2019-03-24 08:10] LABS: ANION GAP 10 mmol/L (5-15); BLOOD UREA NITROGEN 16 mg/dL (7-18); CALCIUM 8.4 MG/DL (8.5-10.1); CARBON DIOXIDE 26 MMOL/L (21-32); CHLORIDE 103 MMOL/L (98-107); CREATINE KINASE 177 U/L (26-308); CREATININE 0.8 MG/DL (0.55-1.30); POTASSIUM 3.7 MMOL/L (3.5-5.1); SODIUM 139 MMOL/L (136-145)
[2019-03-24] MEDS: metFORMIN 500mg tab ORAL SCH ×2 (09:25→17:51)
[2019-03-24] MEDS: Bethanechol 10mg Tab ORAL SCH ×3 (09:26→17:51)
[2019-03-24 12:00] VITALS: BP 156/77
--- NOTE | 2019-03-24 14:00 | NUR ---
NURSE NOTES: Patient refused p200 mattress. States there is air leak. Patient agrees for the p200 mattress to be removed and continue q2hr turns.
--- NOTE | 2019-03-24 14:30 | Neurology Progress Note ---
Interim History Interim History Interim History Ms. Russell continues to feel better. She has been exercising her legs and feels that the right leg may be a little stronger however there is no significant movement in the left leg. She tells me that she has been unable to move the left leg for more than a year now. The sensations over her body continue to improve. She has not noted any new neurologic symptoms. She also denies any fevers or other constitutional symptoms. Review of Systems Neuro Review of Systems Benign. Objective Physical Exam Last Vital Signs Date Time Temp Pulse Resp B/P (MAP) Pulse Ox O2 Delivery O2 Flow Rate FiO2 03/24/19 12:00 99.0 87 18 156/77 (103) 98 03/24/19 09:00 Room Air Laboratory Tests Test 03/24/19 05:31 White Blood Count 9.2 K/UL (4.8-10.8) Red Blood Count 3.11 M/UL (4.20-5.40) L Hemoglobin 9.3 G/DL (12.0-16.0) L Hematocrit 27.1 % (37.0-47.0) L Mean Corpuscular Volume 87 FL (80-99) Mean Corpuscular Hemoglobin 29.8 PG (27.0-31.0) Mean Corpuscular Hemoglobin Concent 34.2 G/DL (32.0-36.0) Red Cell Distribution Width 11.3 % (11.6-14.8) L Platelet Count 325 K/UL (150-450) Mean Platelet Volume 5.9 FL (6.5-10.1) L Neutrophils (%) (Auto) 78.2 % (45.0-75.0) H Lymphocytes (%) (Auto) 12.5 % (20.0-45.0) L Monocytes (%) (Auto) 5.7 % (1.0-10.0) Eosinophils (%) (Auto) 3.0 % (0.0-3.0) Basophils (%) (Auto) 0.5 % (0.0-2.0) Sodium Level 139 MMOL/L (136-145) Potassium Level 3.7 MMOL/L (3.5-5.1) Chloride Level 103 MMOL/L (98-107) Carbon Dioxide Level 26 MMOL/L (21-32) Anion Gap 10 mmol/L (5-15) Blood Urea Nitrogen 16 mg/dL (7-18) Creatinine 0.8 MG/DL (0.55-1.30) Estimat Glomerular Filtration Rate mL/min (>60) Glucose Level 100 MG/DL (74-106) Calcium Level 8.4 MG/DL (8.5-10.1) L Total Creatine Kinase 177 U/L (26-308) Neurologic Exam Objective PHYSICAL EXAMINATION: GENERAL: She is a well-developed and well-nourished, pleasant lady, lying in bed, in no acute distress. HEAD: Normocephalic and atraumatic. EENT: Examination benign. NECK: No neck rigidity was observed. NEUROLOGICAL EXAMINATION: MENTAL STATUS EXAMINATION: She was awake and alert. She was oriented to person, place, and time, except for the exact date. She was able to recall 3/3 words immediately, after 1 and 3 minutes. She was able to remember presidents Trump through Irwin Oscar. Her mathematical skills were good. Her visuospatial function was preserved. SPEECH: She had no dysarthria. LANGUAGE: She had no aphasia. CRANIAL NERVE EXAMINATION: II: The visual brasher were intact on confrontation testing. III, IV & : The external ocular movements were full and the pupils 3 mm in diameter, equal, round, regular, and reactive to light. V: She had normal facial sensations, and the temporales, masseters, and pterygoids functioned normally. VII: She had normal facial expressions and no facial asymmetry. VIII: She was able to hear well bilaterally and had no nystagmus. IX: The palate moved symmetrically on phonation. X: She had no hoarseness of voice. XI: Sternocleidomastoids and trapezii function normally. XII: Tongue was in the midline without any fasciculations or atrophy. MOTOR SYSTEM: The tone was increased with significant spasticity in both lower extremities, more marked on the right than on the left. Examination of muscle mass revealed wasting of the small hand muscles in both upper extremities. In addition, significant wasting of muscles in both lower extremities was seen. She had bilateral knee cord contractures in flexion. Examination of power revealed G 5/5 power in both upper extremities and G 0/5 power in both lower extremities, except for G 2/5 in the right iliopsoas, and G 4/5 in the right ankle dorsiflexors, ankle plantar flexors, toe flexors, toe extensors. SENSORY EXAMINATION: She was able to discern between pinprick and light touch all over her body. There was no sensory level. Position sense was diminished in the toes bilaterally but was normal in the fingers bilaterally. Graphesthesia was normal bilaterally. REFLEXES: 2+ and bilaterally symmetrical at the biceps, triceps, and brachioradialis. 3++ on the right and 3+ on the left at the knees. 4+ on the right and 1+ on the left at the ankles. The plantar response was extensor on the right and mute on the left. COORDINATION: She performed well on [id number] testing bilaterally. She was unable to perform yrbg-we-xyno testing. STANCE & GAIT: Could not be tested. Impression/Recommendations Diagnostic Impression 1. Ms. Margaret Russell is a 73-year-old, right-handed, lady, who does have a past history of multiple medical problems including what has been labeled multiple sclerosis. This has left her with sensory and motor dysfunction from the neck downwards and her being wheelchair bound since she had the illness numerous years ago. Over the years she has had worsening of weakness in the same distribution where the weakness first occurred, but no other involvement of the neuraxis. In the past, she has been worked up for this problem with a lumbar puncture and was told that she had multiple sclerosis. She has also had multiple episodes of urinary tract infections associated with worsening of her neurological symptoms. 2. Approximately four weeks ago, she developed a urinary tract infection with worsening of her neurological symptoms and was treated for it and improved significantly. However, in the last week or so she has had recurrence of her symptoms associated with urinary tract frequency and fevers. Since she has been hospitalized, she has been discovered to have a urinary tract infection and multiple electrolyte imbalances which have since been treated and she feels better. 3. She continues to feel better. She has been exercising her legs and feels that the right leg may be a little stronger however there is no significant movement in the left leg. She tells me that she has been unable to move the left leg for more than a year now. The sensations over her body continue to improve. She has not noted any new neurologic symptoms. She also denies any fevers or other constitutional symptoms. 4. On neurological examination, at this time, she does have increased tone with spasticity in both lower extremities, more marked on the right than on the left , wasting of the small hand muscles, significant wasting of both lower extremities with bilateral knee cord contractures in flexion, her paraplegia has improved with more motor function returning to the right lower extremity, she has no segmental sensory level, pathologically brisk knee jerks, which are brisker on the right than on the left, ankle clonus on the right side, an extensor plantar response on the right side with mute plantar response on the left side, inability to perform cdzs-za-fzay testing and inability to stand and walk. 5. Laboratory data on my initial evaluation revealed that her WBC count is elevated to 11,400. She is anemic with a hemoglobin of 9.9 G. Her sodium on admission was low at 129. The chloride was low at 94. Her BUN was elevated at 34. Creatinine was at 1.2. Her blood glucose was elevated at 165. Hemoglobin A1c was at 6.0. Her CK on admission was 3017 and her albumin was low at 2.2. Her vitamin B12 level was also low at 285. Her urinalysis on admission revealed 3+ leukocyte esterase and too numerous to count red blood cells and white blood cells. 6. The MRI of the Brain without and with gadolinium done on 03/22/19 revealed no acute pathology. No acute intracranial hemorrhage, mass effect or midline shift. No focus of abnormal postcontrast enhancement. Small chronic infarcts in the bilateral cerebellar hemispheres, left thalamus and left caudate were seen. Atrophy and periventricular T2 signal hyperintensity without mass effect most likely on the basis of chronic microvascular ischemic changes were seen. 7. The MRI of the C-spine without and with gadolinium done on 03/22/19 revealed no evidence to suggest demyelinating plaque within the cervical spine. No focus of abnormal postcontrast enhancement. No definite focal cord signal abnormality identified. Discogenic degenerative changes of the cervical spine most pronounced at C4-C5 and C5-C6 with moderate central canal stenosis and apparent moderate to severe foraminal narrowing was noted. 8. The patient's history, neurological examination, and laboratory data are most consistent with an underlying central nervous system neurological illness with paraparesis, altered sensations from her neck downwards and loss of ability to stand and walk, thought to be due to multiple sclerosis. However, by history, her disease has been relatively monophasic with the exacerbations and remissions of dysfunction in the same area over the years related to other illnesses. It is also unclear if her neurological illness represents transverse myelopathy or true multiple sclerosis. However no acute pathology is seen at this time. Recommendations 1. Continue present management. 2. Continue correction of the patient's infectious and metabolic imbalances. 3. Physical and occupational therapy to rehabilitate the patient. 4. Observe closely. Onur Oneal M.D., M.S.P.H. Onur Oneal MD Mar 24, 2019 14:30
--- NOTE | 2019-03-24 14:34 | Infectious Diseases Prog Note ---
Assessment/Plan Assessment/Plan ASSESSMENT AND PLAN: 1. providencia uti/pyelonephritis, sepsis, leukocytosis, fevers - change meropenem to ceftriaxone - day # 3 abx - can change oral ciprofloxacin if needed - plan on 10 days total tx abx - monitor labs 2. The patient has a history of multiple sclerosis. 3. Weakness. 4. History of recurrent urinary tract infection. 5. Hypertension. 6. Diabetes. 7. Blood sugar and blood pressure treatment for diabetes and hypertension per primary. 8. Dyslipidemia. 9. Wound care protocol and surgery. 10. neuropathy 11. History of cellulitis. 12. History of hyperreflexia. 13. History of CVA. 14. History of patent foramina ovale. 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 16. Allergies to sulfa drugs. No penicillin allergy. 17. Social history is negative. 18. Family history is positive for cancer and stroke and cardiac disease. 19. MAR is noted. 20. Case was discussed with RN. 21. Case was discussed with Dr. Tony. 22. Continue treatment per Dr. Tony and consultants. 23. Notes and records were noted. 24. Ordered were entered. Subjective Constitutional: Denies: fever HEENT: Denies: congestion Respiratory: Denies: shortness of breath Cardiovascular: Denies: chest pain Gastrointestinal/Abdominal: Denies: nausea, vomiting, diarrhea Genitourinary: Reports: other - no morse Neurologic: Denies: headache Psychiatric: Denies: depression Skin: Denies: rash Hematologic: Denies: bleeding Musculoskeletal: Denies: pain Allergies: Coded Allergies: SULFA (SULFONAMIDE ANTIBIOTICS) (Verified Allergy, Unknown, 10/07/08) Objective Vital Signs Last 24 Hour Vital Signs Date Time Temp Pulse Resp B/P (MAP) Pulse Ox O2 Delivery O2 Flow Rate FiO2 03/24/19 12:00 99.0 87 18 156/77 (103) 98 03/24/19 11:38 100 03/24/19 09:00 Room Air 03/24/19 08:00 98.3 105 20 163/77 (105) 98 03/24/19 07:47 105 03/24/19 04:00 110 03/24/19 04:00 99.0 109 16 139/76 (97) 96 03/24/19 00:00 98.6 106 18 145/93 (110) 98 03/24/19 00:00 105 03/23/19 21:00 Room Air 03/23/19 20:00 105 03/23/19 20:00 98.8 70 18 133/66 (88) 97 03/23/19 16:00 98.4 89 19 131/62 (85) 98 03/23/19 15:59 92 03/23/19 15:24 98.4 Height (Feet): 5 Height (Inches): 3.00 Weight (Pounds): 146 General Appearance: no acute distress HEENT: normocephalic, atraumatic, anicteric, mucous membranes moist Respiratory/Chest: lungs clear, normal breath sounds, no respiratory distress, no accessory muscle use Cardiovascular: normal rate, regular rhythm, no gallop/murmur, no JVD Abdomen: normal bowel sounds, soft, non tender, no organomegaly Genitourinary: other - no morse, no cva pain Extremities: no cyanosis Skin: no rash 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 Heart size is normal. No significant interim change Impression: No acute process Microbiology Date/Time Source Procedure Growth Status 03/21/19 16:16 Blood Blood Culture - Preliminary NO GROWTH AFTER 48 HOURS Resulted 03/21/19 16:16 Blood Blood Culture - Preliminary NO GROWTH AFTER 48 HOURS Resulted 03/21/19 16:50 Urine,Clean Catch Urine Culture - Final Providencia Rettgeri Complete Laboratory Tests Test 03/24/19 05:31 White Blood Count 9.2 K/UL (4.8-10.8) Red Blood Count 3.11 M/UL (4.20-5.40) L Hemoglobin 9.3 G/DL (12.0-16.0) L Hematocrit 27.1 % (37.0-47.0) L Mean Corpuscular Volume 87 FL (80-99) Mean Corpuscular Hemoglobin 29.8 PG (27.0-31.0) Mean Corpuscular Hemoglobin Concent 34.2 G/DL (32.0-36.0) Red Cell Distribution Width 11.3 % (11.6-14.8) L Platelet Count 325 K/UL (150-450) Mean Platelet Volume 5.9 FL (6.5-10.1) L Neutrophils (%) (Auto) 78.2 % (45.0-75.0) H Lymphocytes (%) (Auto) 12.5 % (20.0-45.0) L Monocytes (%) (Auto) 5.7 % (1.0-10.0) Eosinophils (%) (Auto) 3.0 % (0.0-3.0) Basophils (%) (Auto) 0.5 % (0.0-2.0) Sodium Level 139 MMOL/L (136-145) Potassium Level 3.7 MMOL/L (3.5-5.1) Chloride Level 103 MMOL/L (98-107) Carbon Dioxide Level 26 MMOL/L (21-32) Anion Gap 10 mmol/L (5-15) Blood Urea Nitrogen 16 mg/dL (7-18) Creatinine 0.8 MG/DL (0.55-1.30) Estimat Glomerular Filtration Rate mL/min (>60) Glucose Level 100 MG/DL (74-106) Calcium Level 8.4 MG/DL (8.5-10.1) L Total Creatine Kinase 177 U/L (26-308) Current Medications Medications (Trade) Dose Ordered Sig/Isaura Route PRN Reason Start Time Stop Time Status Last Admin Dose Admin Acetaminophen (Tylenol) 650 mg Q6H PRN ORAL Mild Pain/Temp > 100.5 03/21/19 22:30 04/20/19 22:29 03/23/19 14:54 Baclofen (Lioresal) 10 mg BID ORAL 03/23/19 18:00 04/22/19 17:59 03/24/19 09:26 Bethanechol Chloride (Urecholine) 10 mg FOUR TIMES A DAY ORAL 03/23/19 18:00 04/22/19 17:59 03/24/19 13:01 Ceftriaxone Sodium 1 gm/ Dextrose 50 ml @ 100 mls/hr Q24H IVPB 03/24/19 16:00 03/31/19 15:59 Clopidogrel Bisulfate (Plavix) 75 mg DAILY ORAL 03/22/19 09:00 04/21/19 08:59 03/24/19 09:25 Dextrose (Dextrose 50%) 25 ml Q30M PRN IV Hypoglycemia 03/21/19 23:30 04/20/19 23:29 Dextrose (Dextrose 50%) 50 ml Q30M PRN IV Hypoglycemia 03/21/19 23:30 04/20/19 23:29 Diazepam (Valium) 2.5 mg DAILYPRN PRN ORAL anxiety 03/23/19 16:45 03/30/19 16:44 Gadobutrol (Gadavist) 7.5 mmol NOW PRN IV Radiology Procedure 03/21/19 23:30 03/25/19 23:20 Gadobutrol (Gadavist) 7.5 mmol NOW PRN IV Radiology Procedure 03/21/19 23:30 03/25/19 23:20 Metformin HCl (Glucophage) 500 mg BID ORAL 03/21/19 22:30 04/20/19 22:29 03/24/19 09:25 Sodium Chloride 1,000 ml @ 50 mls/hr Q20H IV 03/23/19 16:48 04/22/19 16:47 03/23/19 17:44 Ronnie Bloom MD Mar 24, 2019 14:34
[2019-03-24] MEDS: cefTRIAXone 1 GM in D5W 50 ML IVPB SCH (15:50)
[2019-03-24 16:00] VITALS: BP 163/87
--- NOTE | 2019-03-24 19:15 | NUR ---
NURSE NOTES: Received report from HUSAM Rubio. Patient is awake, lying in semi-felix's; resting comfortably. A/Ox4. Denies pain at this time. No signs of acute cardiorespiratory distress noted. Checked IV site and flushed. No erythema, bleeding or infiltration noted. On P200 mattress for wound management. Bed at lowest position, brakes on, siderails x3. Call light within reach. Will continue to monitor. Addendum: 03/25/19 at 0146 by Keim Brown RN Patient is not on P200 mattress.
--- NOTE | 2019-03-24 19:16 | Geriatric Progress Note ---
Assessment/Plan Problems: (1) Acute kidney injury (2) Volume depletion (3) Rhabdomyolysis (4) Skin ulcer (5) B12 deficiency (6) Multiple sclerosis (7) Pyelonephritis (8) Sepsis (9) Transverse myelitis Assessment/Plan UTI on Ceftriaxone. Still retaining. Will increase urecholine. Generalized weakness. Mobilize P.T. Volume depletion and rhabdomyolysis resolving. Wounds on tx. Consider d/c to SNF after wound treatment tomorrow. Discussed with: patient, hospital staff Subjective Interval Events Patient reports feeling somewhat better. Spent day "mourning" possible lost opportunities due to prior dx of multiple sclerosis vs. transverse myelitis. Feels emotionally better now. Still with significant residuals. No definite ADR from urecholine. Stools "toothpaste" texture. Intake OK, but without gusto. Changed to Ceftriaxone for UTI. Patient reports Dr. Chang to crosshatch wound surface tomorrow. Labs normalized including CPK. Constitutional: Denies: chills, pain, sweats, fever Respiratory: Denies: cough, shortness of breath Cardiovascular: Denies: chest pain, palpitations Gastrointestinal/Abdominal: Denies: abdominal pain, diarrhea, nausea Genitourinary: Denies: dysuria Geriatric Geriatric Last 24 Hour Vital Signs Date Time Temp Pulse Resp B/P (MAP) Pulse Ox O2 Delivery O2 Flow Rate FiO2 03/24/19 16:00 98.6 104 18 163/87 (112) 95 03/24/19 15:43 105 03/24/19 12:00 99.0 87 18 156/77 (103) 98 03/24/19 11:38 100 03/24/19 09:00 Room Air 03/24/19 08:00 98.3 105 20 163/77 (105) 98 03/24/19 07:47 105 03/24/19 04:00 110 03/24/19 04:00 99.0 109 16 139/76 (97) 96 03/24/19 00:00 98.6 106 18 145/93 (110) 98 03/24/19 00:00 105 03/23/19 21:00 Room Air 03/23/19 20:00 105 03/23/19 20:00 98.8 70 18 133/66 (88) 97 Intake and Output 03/23/19 03/24/19 19:00 07:00 Intake Total 630 ml 120 ml Output Total 900 ml Balance -270 ml 120 ml Intake Oral 140 ml 120 ml IV Total 490 ml Output Urine Total 900 ml # Voids 2 Laboratory Tests Test 03/24/19 05:31 White Blood Count 9.2 K/UL (4.8-10.8) Red Blood Count 3.11 M/UL (4.20-5.40) L Hemoglobin 9.3 G/DL (12.0-16.0) L Hematocrit 27.1 % (37.0-47.0) L Mean Corpuscular Volume 87 FL (80-99) Mean Corpuscular Hemoglobin 29.8 PG (27.0-31.0) Mean Corpuscular Hemoglobin Concent 34.2 G/DL (32.0-36.0) Red Cell Distribution Width 11.3 % (11.6-14.8) L Platelet Count 325 K/UL (150-450) Mean Platelet Volume 5.9 FL (6.5-10.1) L Neutrophils (%) (Auto) 78.2 % (45.0-75.0) H Lymphocytes (%) (Auto) 12.5 % (20.0-45.0) L Monocytes (%) (Auto) 5.7 % (1.0-10.0) Eosinophils (%) (Auto) 3.0 % (0.0-3.0) Basophils (%) (Auto) 0.5 % (0.0-2.0) Sodium Level 139 MMOL/L (136-145) Potassium Level 3.7 MMOL/L (3.5-5.1) Chloride Level 103 MMOL/L (98-107) Carbon Dioxide Level 26 MMOL/L (21-32) Anion Gap 10 mmol/L (5-15) Blood Urea Nitrogen 16 mg/dL (7-18) Creatinine 0.8 MG/DL (0.55-1.30) Estimat Glomerular Filtration Rate mL/min (>60) Glucose Level 100 MG/DL (74-106) Calcium Level 8.4 MG/DL (8.5-10.1) L Total Creatine Kinase 177 U/L (26-308) Current Medications Medications (Trade) Dose Ordered Sig/Isaura Route PRN Reason Start Time Stop Time Status Last Admin Dose Admin Acetaminophen (Tylenol) 650 mg Q6H PRN ORAL Mild Pain/Temp > 100.5 03/21/19 22:30 04/20/19 22:29 03/24/19 17:51 Baclofen (Lioresal) 10 mg BID ORAL 03/23/19 18:00 04/22/19 17:59 03/24/19 17:51 Bethanechol Chloride (Urecholine) 10 mg FOUR TIMES A DAY ORAL 03/23/19 18:00 04/22/19 17:59 03/24/19 17:51 Ceftriaxone Sodium 1 gm/ Dextrose 50 ml @ 100 mls/hr Q24H IVPB 03/24/19 16:00 03/31/19 15:59 03/24/19 15:50 Clopidogrel Bisulfate (Plavix) 75 mg DAILY ORAL 03/22/19 09:00 04/21/19 08:59 03/24/19 09:25 Dextrose (Dextrose 50%) 25 ml Q30M PRN IV Hypoglycemia 03/21/19 23:30 04/20/19 23:29 Dextrose (Dextrose 50%) 50 ml Q30M PRN IV Hypoglycemia 03/21/19 23:30 04/20/19 23:29 Diazepam (Valium) 2.5 mg DAILYPRN PRN ORAL anxiety 03/23/19 16:45 03/30/19 16:44 Gadobutrol (Gadavist) 7.5 mmol NOW PRN IV Radiology Procedure 03/21/19 23:30 03/25/19 23:20 Gadobutrol (Gadavist) 7.5 mmol NOW PRN IV Radiology Procedure 03/21/19 23:30 03/25/19 23:20 Metformin HCl (Glucophage) 500 mg BID ORAL 03/21/19 22:30 04/20/19 22:29 03/24/19 17:51 Sodium Chloride 1,000 ml @ 50 mls/hr Q20H IV 03/23/19 16:48 04/22/19 16:47 03/24/19 12:48 Height (Feet): 5 Height (Inches): 3.00 Weight (Pounds): 146 General Appearance: no apparent distress, alert, non-toxic Head: normocephalic, atraumatic Eyes: bilateral anicteric ENT: normal voice Neck: full range of motion, no mass Respiratory: lungs clear Cardiovascular: regular rate, rhythm Gastrointestinal: normal bowel sounds, non tender, soft, no mass, no organomegaly Musculoskeletal: no calf tenderness Neurologic: no new focality Julian Tony MD Mar 24, 2019 19:16
[2019-03-24 20:00] VITALS: BP 133/61
[2019-03-24] MEDS: Bethanechol 25mg Tab ORAL SCH (21:05)
[2019-03-25] VITALS: BP 139/62
--- NOTE | 2019-03-25 01:30 | NUR ---
NURSE NOTES: Bladder scan revealed 999+ml, with a urine output of 1500ml, draining to clear, yellow urine.
--- NOTE | 2019-03-25 01:56 | NUR ---
NURSE NOTES: Resting throughout the night. No significant change of condition noted. Will continue to monitor.
[2019-03-25 04:00] VITALS: BP 140/72
--- NOTE | 2019-03-25 06:31 | NUR ---
NURSE NOTES: Bladder scan done which revealed 683ml, straight catheter done with a urine output of 700ml, draining to a clear yellow urine.
--- NOTE | 2019-03-25 07:28 | NUR ---
NURSE NOTES: I received the patient awake and resting in bed. Patient alert and oriented x4. Bed in the lowest position and call light within reach. Patient does not display any signs of distress or SOB. I will continue to monitor the patient and implement care.
--- NOTE | 2019-03-25 07:30 | NUR ---
HAND-OFF: Report given to HUSAM Rubio. Plan of care endorsed.
[2019-03-25 07:59] VITALS: BP 141/66
[2019-03-25 08:01] LABS: BASOPHILS % (AUTO) 0.4 % (0.0-2.0); EOSINOPHILS % (AUTO) 3.6 % (0.0-3.0); HEMATOCRIT 28.9 % (37.0-47.0); HEMOGLOBIN 9.8 G/DL (12.0-16.0); LYMPHOCYTES % (AUTO) 17.3 % (20.0-45.0); MEAN CORPUSCULAR VOLUME 88 FL (80-99); MONOCYTES % (AUTO) 7.1 % (1.0-10.0); NEUTROPHILS % (AUTO) 71.5 % (45.0-75.0); PLATELET COUNT 401 K/UL (150-450); RED BLOOD COUNT 3.29 M/UL (4.20-5.40); RED CELL DISTRIBUTION WIDTH 11.5 % (11.6-14.8); WHITE BLOOD COUNT 7.9 K/UL (4.8-10.8)
--- NOTE | 2019-03-25 08:17 | NUR ---
DISCHARGE PLANNING DISCHARGE ORDER NOTED FAXED CLINICALS TO [facility] T: [phone] F: [phone] AWAIT ACCEPTANCE AND ASSIGNED ROOM NUMBER NEED TO FIND OUT IF PATIENT HAD THE FLU VACCINE Addendum: 03/25/19 at 1216 by SHARAN ESPARZA LVN LVN HAVE NOT RECEIVED A RESPONSE FROM [facility] CALLED AND LEFT VMM FOR [facility] Addendum: 03/25/19 at 1453 by SHARAN ESPARZA LVN LVN SPOKE WITH [facility] SPINNER AT [facility] THEY ARE REVIEWING THE CLINICALS AND ARE CONCERNED ABOUT WOUNDS THEY WILL CALL US BACK AFTER THEY HAVE MADE A DECISION DISCUSSED WITH PATIENT AT BEDSIDE
[2019-03-25 08:19] LABS: ALANINE AMINOTRANSFERASE 35 U/L (12-78); ALBUMIN 1.9 G/DL (3.4-5.0); ALBUMIN/GLOBULIN RATIO 0.5 (1.0-2.7); ALKALINE PHOSPHATASE 65 U/L (46-116); ANION GAP 6 mmol/L (5-15); ASPARTATE AMINO TRANSFERASE 33 U/L (15-37); BILIRUBIN,TOTAL 0.2 MG/DL (0.2-1.0); BLOOD UREA NITROGEN 15 mg/dL (7-18); CALCIUM 8.8 MG/DL (8.5-10.1); CARBON DIOXIDE 27 MMOL/L (21-32); CHLORIDE 104 MMOL/L (98-107); CREATININE 0.8 MG/DL (0.55-1.30); POTASSIUM 3.6 MMOL/L (3.5-5.1); SODIUM 137 MMOL/L (136-145)
[2019-03-25] MEDS: metFORMIN 500mg tab ORAL SCH ×2 (08:30→17:06)
[2019-03-25] MEDS: Bethanechol 25mg Tab ORAL SCH ×4 (08:30→20:13)
--- NOTE | 2019-03-25 11:58 | NUR ---
NURSE NOTES: Patient's bladder scanned and had 600 ml of fluid. An in-and-out cath was performed and 600 ml of fluid removed.
[2019-03-25 12:00] VITALS: BP 121/59
--- NOTE | 2019-03-25 12:12 | Cardiology Report ---
APPROVED REPORT EKG Measurement Heart [id number] Sinus tachycardia Low voltage QRS Borderline ECG
--- NOTE | 2019-03-25 13:00 | NUR ---
NURSE NOTES: Patient was cleaned and repositioned. Wound care was performed, dressings changed and pictures taken for discharge. Patient resting in the bed and does not display any signs of distress. Bed in the lowest position and call light within reach.
--- NOTE | 2019-03-25 15:16 | NUR ---
DISCHARGE PLANNING RECEIVED CALL FROM JESUS AT [facility] THEY ARE DECLINING PATIENT BECAUSE OF WOUNDS LEFT MESSAGE FOR DR JARA AWAIT FURTHER INSTRUCTIONS
--- NOTE | 2019-03-25 15:52 | Surgery Progress Note ---
Surgery Progress Note Subjective Additional Comments doing well no complaints no n/v/f/c crosshatched wound at bedside today. Objective Last 24 Hour Vital Signs Date Time Temp Pulse Resp B/P (MAP) Pulse Ox O2 Delivery O2 Flow Rate FiO2 03/25/19 12:00 98.3 89 20 121/59 (79) 97 03/25/19 11:47 96 03/25/19 09:05 98.7 03/25/19 09:00 Room Air 03/25/19 07:59 98.7 104 20 141/66 (91) 96 03/25/19 07:49 103 03/25/19 04:00 98 03/25/19 04:00 97.7 102 19 140/72 (94) 98 03/25/19 00:00 97.1 96 18 139/62 (87) 99 03/25/19 00:00 99 03/24/19 21:00 Room Air 03/24/19 20:00 96.8 98 16 133/61 (85) 98 03/24/19 20:00 96 03/24/19 16:00 98.6 104 18 163/87 (112) 95 I&O Intake and Output 03/24/19 03/25/19 19:00 07:00 Intake Total 270 ml 120 ml Output Total 1400 ml Balance -1130 ml 120 ml Intake Oral 120 ml 120 ml IV Total 150 ml Output Urine Total 1400 ml # Voids 3 # Bowel Movements 4 Dressing: dry Wound: clean Cardiovascular: RSR Respiratory: clear Abdomen: soft, flat, present bowel sounds Extremities: no edema, no tenderness, no cyanosis, other Laboratory Tests Test 03/25/19 06:12 White Blood Count 7.9 K/UL (4.8-10.8) Red Blood Count 3.29 M/UL (4.20-5.40) L Hemoglobin 9.8 G/DL (12.0-16.0) L Hematocrit 28.9 % (37.0-47.0) L Mean Corpuscular Volume 88 FL (80-99) Mean Corpuscular Hemoglobin 29.8 PG (27.0-31.0) Mean Corpuscular Hemoglobin Concent 34.0 G/DL (32.0-36.0) Red Cell Distribution Width 11.5 % (11.6-14.8) L Platelet Count 401 K/UL (150-450) Mean Platelet Volume 5.6 FL (6.5-10.1) L Neutrophils (%) (Auto) 71.5 % (45.0-75.0) Lymphocytes (%) (Auto) 17.3 % (20.0-45.0) L Monocytes (%) (Auto) 7.1 % (1.0-10.0) Eosinophils (%) (Auto) 3.6 % (0.0-3.0) H Basophils (%) (Auto) 0.4 % (0.0-2.0) Sodium Level 137 MMOL/L (136-145) Potassium Level 3.6 MMOL/L (3.5-5.1) Chloride Level 104 MMOL/L (98-107) Carbon Dioxide Level 27 MMOL/L (21-32) Anion Gap 6 mmol/L (5-15) Blood Urea Nitrogen 15 mg/dL (7-18) Creatinine 0.8 MG/DL (0.55-1.30) Estimat Glomerular Filtration Rate mL/min (>60) Glucose Level 113 MG/DL (74-106) H Calcium Level 8.8 MG/DL (8.5-10.1) Total Bilirubin 0.2 MG/DL (0.2-1.0) Aspartate Amino Transf (AST/SGOT) 33 U/L (15-37) Alanine Aminotransferase (ALT/SGPT) 35 U/L (12-78) Alkaline Phosphatase 65 U/L (46-116) Total Protein 5.9 G/DL (6.4-8.2) L Albumin 1.9 G/DL (3.4-5.0) L Globulin 4.0 g/dL Albumin/Globulin Ratio 0.5 (1.0-2.7) L Plan Problems: (1) Skin ulcer Assessment & Plan: Pt presented on admission with multiple skin injuries. Non- blanchable erythema without induration sacrum. Macular red rash noted to R groin and perineum. Pt denied burning or itching. traumatic injury L Ischium. Base of wound 95% yellow slough,5% necrotic. Erythema with shearing noted periwound. (L)3.4cm x (W)3cm. Pt stated due to fevers and weakness she has been unable to transfer to bed and has been sitting up in wheelchair continuously as well as lots of movement on the left ischium in her wheelchair. Pt stated she belives she has had wound for a week or so from trauma and pressure given recent events. DTPI noted to L trochanter. Wound is linear ,indurated and maroon in colour. Pt verbalized pain at site when minimally palpated.(L)11cm x (W)0.8cm. DTPI L heel extending into plantar aspect. Base of wound is maroon with purple area at plantar aspect. Pt stated she developed wound to heel approx 6 weeks ago.(L)5.8cm x (W)5cm. R heel is boggy with non-blanchable erythema. Non-tender when palpated. DTPI lateral R foot. Base of wound maroon with red tinged borders. (L)0.7cm x (W )0.5cm. s/p crosshatch area of 3.45cm x3cm on left ischium. seemingly superficial as minimal sloth prior to good tissue. cont with care as below plan for santyl if available to crosshatched wound Tx.Plan: Apply Cavilon Skin Barrier to L trochanter (Do Not Massage/Rub site). Cover with Optifoam drsg. Change every 7 days and prn. Cleanse wound L ischium with Saline.Apply Therahoney. Apply Cavilon periwound. Cover with Optifoam drsg every 3 days and prn. Apply Moisture Barrier Paste to Sacrum. Coover with Optifoam drsg. Change every 3 days and prn. Apply Cavilon Skin Barrier to R heel , Lateral R foot and L heel. Cover with Optifoam drsg. Change every 7 days and PRN. APM/CRYSTAL Mattress overlay. Reposition at least every 2hours or as tolerated. Off-load heels with pillow. (2) Rhabdomyolysis Assessment & Plan: CK elevated and trending down fluids trend labs IMPRESSION: Cholelithiasis. No sonographic evidence to suggest acute cholecystitis. Sonographic Carroll sign reported as negative. * Pancreas obscured due to overlying bowel gas and not evaluated. * Distended bladder with a volume of 515 mL. Correlate for urinary retention. Mild layering debris noted within the bladder. Correlation with urinalysis recommended to assess for cystitis. (3) Fever (4) Volume depletion (5) Pyelonephritis (6) Sepsis (7) Multiple sclerosis (8) B12 deficiency (9) Acute kidney injury Jamir Chang Mar 25, 2019 15:52
[2019-03-25 16:00] VITALS: BP 147/62
[2019-03-25] MEDS: cefTRIAXone 1 GM in D5W 50 ML IVPB SCH (16:35)
--- NOTE | 2019-03-25 19:12 | NUR ---
HAND-OFF: Report given to Harlan Burger RN. Patient resting in bed and in stable condition.
--- NOTE | 2019-03-25 19:20 | NUR ---
HAND-OFF: Report given to HUSAM Romo.
--- NOTE | 2019-03-25 19:27 | Neurology Progress Note ---
Interim History Interim History Interim History Ms. Russell continues to feel better. 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 She has been exercising her legs and feels that the right leg is a little stronger however there is no significant movement in the left leg. The sensations over her body continue to improve. She has not noted any new neurologic symptoms. She also denies any fevers or other constitutional symptoms. Review of Systems Neuro Review of Systems Benign. Objective Physical Exam Last Vital Signs Date Time Temp Pulse Resp B/P (MAP) Pulse Ox O2 Delivery O2 Flow Rate FiO2 03/25/19 16:00 98.3 98 18 147/62 (90) 97 03/25/19 09:00 Room Air Laboratory Tests Test 03/25/19 06:12 White Blood Count 7.9 K/UL (4.8-10.8) Red Blood Count 3.29 M/UL (4.20-5.40) L Hemoglobin 9.8 G/DL (12.0-16.0) L Hematocrit 28.9 % (37.0-47.0) L Mean Corpuscular Volume 88 FL (80-99) Mean Corpuscular Hemoglobin 29.8 PG (27.0-31.0) Mean Corpuscular Hemoglobin Concent 34.0 G/DL (32.0-36.0) Red Cell Distribution Width 11.5 % (11.6-14.8) L Platelet Count 401 K/UL (150-450) Mean Platelet Volume 5.6 FL (6.5-10.1) L Neutrophils (%) (Auto) 71.5 % (45.0-75.0) Lymphocytes (%) (Auto) 17.3 % (20.0-45.0) L Monocytes (%) (Auto) 7.1 % (1.0-10.0) Eosinophils (%) (Auto) 3.6 % (0.0-3.0) H Basophils (%) (Auto) 0.4 % (0.0-2.0) Sodium Level 137 MMOL/L (136-145) Potassium Level 3.6 MMOL/L (3.5-5.1) Chloride Level 104 MMOL/L (98-107) Carbon Dioxide Level 27 MMOL/L (21-32) Anion Gap 6 mmol/L (5-15) Blood Urea Nitrogen 15 mg/dL (7-18) Creatinine 0.8 MG/DL (0.55-1.30) Estimat Glomerular Filtration Rate mL/min (>60) Glucose Level 113 MG/DL (74-106) H Calcium Level 8.8 MG/DL (8.5-10.1) Total Bilirubin 0.2 MG/DL (0.2-1.0) Aspartate Amino Transf (AST/SGOT) 33 U/L (15-37) Alanine Aminotransferase (ALT/SGPT) 35 U/L (12-78) Alkaline Phosphatase 65 U/L (46-116) Total Protein 5.9 G/DL (6.4-8.2) L Albumin 1.9 G/DL (3.4-5.0) L Globulin 4.0 g/dL Albumin/Globulin Ratio 0.5 (1.0-2.7) L Neurologic Exam Objective PHYSICAL EXAMINATION: GENERAL: She is a well-developed, well-nourished, pleasant lady, lying in bed, in no acute distress. HEAD: Normocephalic and atraumatic. EENT: Examination benign. NECK: No neck rigidity was observed. NEUROLOGICAL EXAMINATION: MENTAL STATUS EXAMINATION: She was awake and alert. She was oriented to person, place, and time, except for the exact date. She was able to recall 3/3 words immediately, after 1 and 3 minutes. She was able to remember presidents Trump through Irwin Oscar. Her mathematical skills were good. Her visuospatial function was preserved. SPEECH: She had no dysarthria. LANGUAGE: She had no aphasia. CRANIAL NERVE EXAMINATION: II: The visual brasher were intact on confrontation testing. III, IV & : The external ocular movements were full and the pupils 3 mm in diameter, equal, round, regular, and reactive to light. V: She had normal facial sensations, and the temporales, masseters, and pterygoids functioned normally. VII: She had normal facial expressions and no facial asymmetry. VIII: She was able to hear well bilaterally and had no nystagmus. IX: The palate moved symmetrically on phonation. X: She had no hoarseness of voice. XI: Sternocleidomastoids and trapezii function normally. XII: Tongue was in the midline without any fasciculations or atrophy. MOTOR SYSTEM: The tone was increased with significant spasticity in both lower extremities, more marked on the right than on the left. Examination of muscle mass revealed wasting of the small hand muscles in both upper extremities. In addition, significant wasting of muscles in both lower extremities was seen. She had bilateral knee cord contractures in flexion. Examination of power revealed G 5/5 power in both upper extremities and G 0/5 power in both lower extremities, except for G 2/5 in the right iliopsoas, and G 4/5 in the right ankle dorsiflexors, ankle plantar flexors, toe flexors, toe extensors. SENSORY EXAMINATION: She was able to discern between pinprick and light touch all over her body. There was no sensory level. Position sense was diminished in the toes bilaterally but was normal in the fingers bilaterally. Graphesthesia was normal bilaterally. REFLEXES: 2+ and bilaterally symmetrical at the biceps, triceps, and brachioradialis. 3++ on the right and 3+ on the left at the knees. 4+ on the right and 1+ on the left at the ankles. The plantar response was extensor on the right and mute on the left. COORDINATION: She performed well on [id number] testing bilaterally. She was unable to perform [id number] testing. STANCE & GAIT: Could not be tested. Impression/Recommendations Diagnostic Impression 1. Ms. Margaret Russell is a 73-year-old, right-handed, lady, who does have a past history of multiple medical problems including what has been labeled multiple sclerosis. This has left her with sensory and motor dysfunction from the neck downwards and her being wheelchair bound since she had the illness numerous years ago. Over the years she has had worsening of weakness in the same distribution where the weakness first occurred, but no other involvement of the neuraxis. In the past, she has been worked up for this problem with a lumbar puncture and was told that she had multiple sclerosis. She has also had multiple episodes of urinary tract infections associated with worsening of her neurological symptoms. 2. Approximately four weeks ago, she developed a urinary tract infection with worsening of her neurological symptoms and was treated for it and improved significantly. However, in the last week or so she has had recurrence of her symptoms associated with urinary tract frequency and fevers. Since she has been hospitalized, she has been discovered to have a urinary tract infection and multiple electrolyte imbalances which have since been treated and she feels better. 3. She continues to feel better. 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 She has been exercising her legs and feels that the right leg is a little stronger however there is no significant movement in the left leg. The sensations over her body continue to improve. She has not noted any new neurologic symptoms. She also denies any fevers or other constitutional symptoms. 4. On neurological examination, at this time, she does have increased tone with spasticity in both lower extremities, more marked on the right than on the left , wasting of the small hand muscles, significant wasting of both lower extremities with bilateral knee cord contractures in flexion, her paraplegia has improved with more motor function returning to the right lower extremity, she has no segmental sensory level, pathologically brisk knee jerks, which are brisker on the right than on the left, ankle clonus on the right side, an extensor plantar response on the right side with mute plantar response on the left side, inability to perform [id number] testing and inability to stand and walk. 5. Laboratory data on my initial evaluation revealed that her WBC count is elevated to 11,400. She is anemic with a hemoglobin of 9.9 G. Her sodium on admission was low at 129. The chloride was low at 94. Her BUN was elevated at 34. Creatinine was at 1.2. Her blood glucose was elevated at 165. Hemoglobin A1c was at 6.0. Her CK on admission was 3017 and her albumin was low at 2.2. Her vitamin B12 level was also low at 285. Her urinalysis on admission revealed 3+ leukocyte esterase and too numerous to count red blood cells and white blood cells. 6. The MRI of the Brain without and with gadolinium done on 03/22/19 revealed no acute pathology. No acute intracranial hemorrhage, mass effect or midline shift. No focus of abnormal postcontrast enhancement. Small chronic infarcts in the bilateral cerebellar hemispheres, left thalamus and left caudate were seen. Atrophy and periventricular T2 signal hyperintensity without mass effect most likely on the basis of chronic microvascular ischemic changes were seen. 7. The MRI of the C-spine without and with gadolinium done on 03/22/19 revealed no evidence to suggest demyelinating plaque within the cervical spine. No focus of abnormal postcontrast enhancement. No definite focal cord signal abnormality identified. Discogenic degenerative changes of the cervical spine most pronounced at C4-C5 and C5-C6 with moderate central canal stenosis and apparent moderate to severe foraminal narrowing was noted. 8. The patient's history, neurological examination, and laboratory data are most consistent with an underlying central nervous system neurological illness with paraparesis, altered sensations from her neck downwards and loss of ability to stand and walk, thought to be due to multiple sclerosis. However, by history, her disease has been relatively monophasic with the exacerbations and remissions of dysfunction in the same area over the years related to other illnesses. It is also unclear if her neurological illness represents transverse myelopathy or true multiple sclerosis. However no acute pathology is seen at this time. Recommendations 1. Continue present management. 2. Continue correction of the patient's infectious and metabolic imbalances. 3. Physical and occupational therapy to rehabilitate the patient. 4. Observe closely. Onur Oneal M.D., M.S.P.Rajeev. Onur Oneal MD Mar 25, 2019 19:27
--- NOTE | 2019-03-25 19:52 | NUR ---
NURSE NOTES: Received report from Joanne RN, pt. in bed awake, A/O x's4- able to make needs known, no signs or symptoms of acute cardiac or respiratory distress noted, pt. appears to sating well on room air- no distress noted, side rails up x's3 and safety brakes engaged, call light within easy reach, and bed alarm on, pt. appears to be resting comfortably, and appears to be clean and dry, LFA 22G running NS at 50cc/hr- IV intact and patent, safety measures continued, will continue with plan of care.
[2019-03-25 20:00] VITALS: BP 150/72
--- NOTE | 2019-03-25 20:31 | Geriatric Progress Note ---
Assessment/Plan Problems: (1) Acute kidney injury (2) Volume depletion (3) Rhabdomyolysis (4) Skin ulcer (5) B12 deficiency (6) Multiple sclerosis (7) Pyelonephritis (8) Sepsis (9) Transverse myelitis Assessment/Plan UTI on Ceftriaxone. Wbc normalized. Continue current tx. Still retaining. Will add Flomax to see if spontaneous voiding can be induced. Otherwise, patient may need to learn self-cath or consider indwelling cath. Generalized weakness, mobilize with P.T. Sit up as tolerated. Further decrease IVF. Wounds on tx. Add antifungal to groins. Await resolution placement issues. Discussed with: patient, hospital staff Subjective Interval Events Patient alert, feeling better. Reports having slept better, more energetic. Feels better on APM. Eating, although appetite is not robust. Wound crosshatched today by Dr. Chang. Not seen by P.T. today, has not been out of bed at all. Still with volumes of 600ml by bladder scan, requiring caths. Patient reports she can feel full bladder, but no result with attempting to void. D/c held up by concern re wounds by SNF. Discussed with SNF DON, case management. Will be reviewed in am for final decision. Constitutional: Denies: chills, sweats, fever Respiratory: Denies: cough, shortness of breath Cardiovascular: Denies: chest pain, palpitations Gastrointestinal/Abdominal: Denies: abdominal pain, diarrhea, nausea Genitourinary: Denies: dysuria Geriatric Geriatric Last 24 Hour Vital Signs Date Time Temp Pulse Resp B/P (MAP) Pulse Ox O2 Delivery O2 Flow Rate FiO2 03/25/19 16:00 98.3 98 18 147/62 (90) 97 03/25/19 15:53 98 03/25/19 12:00 98.3 89 20 121/59 (79) 97 03/25/19 11:47 96 03/25/19 09:05 98.7 03/25/19 09:00 Room Air 03/25/19 07:59 98.7 104 20 141/66 (91) 96 03/25/19 07:49 103 03/25/19 04:00 98 03/25/19 04:00 97.7 102 19 140/72 (94) 98 03/25/19 00:00 97.1 96 18 139/62 (87) 99 03/25/19 00:00 99 03/24/19 21:00 Room Air Intake and Output 03/24/19 03/25/19 19:00 07:00 Intake Total 270 ml 120 ml Output Total 1400 ml Balance -1130 ml 120 ml Intake Oral 120 ml 120 ml IV Total 150 ml Output Urine Total 1400 ml # Voids 3 # Bowel Movements 4 Laboratory Tests Test 03/25/19 06:12 White Blood Count 7.9 K/UL (4.8-10.8) Red Blood Count 3.29 M/UL (4.20-5.40) L Hemoglobin 9.8 G/DL (12.0-16.0) L Hematocrit 28.9 % (37.0-47.0) L Mean Corpuscular Volume 88 FL (80-99) Mean Corpuscular Hemoglobin 29.8 PG (27.0-31.0) Mean Corpuscular Hemoglobin Concent 34.0 G/DL (32.0-36.0) Red Cell Distribution Width 11.5 % (11.6-14.8) L Platelet Count 401 K/UL (150-450) Mean Platelet Volume 5.6 FL (6.5-10.1) L Neutrophils (%) (Auto) 71.5 % (45.0-75.0) Lymphocytes (%) (Auto) 17.3 % (20.0-45.0) L Monocytes (%) (Auto) 7.1 % (1.0-10.0) Eosinophils (%) (Auto) 3.6 % (0.0-3.0) H Basophils (%) (Auto) 0.4 % (0.0-2.0) Sodium Level 137 MMOL/L (136-145) Potassium Level 3.6 MMOL/L (3.5-5.1) Chloride Level 104 MMOL/L (98-107) Carbon Dioxide Level 27 MMOL/L (21-32) Anion Gap 6 mmol/L (5-15) Blood Urea Nitrogen 15 mg/dL (7-18) Creatinine 0.8 MG/DL (0.55-1.30) Estimat Glomerular Filtration Rate mL/min (>60) Glucose Level 113 MG/DL (74-106) H Calcium Level 8.8 MG/DL (8.5-10.1) Total Bilirubin 0.2 MG/DL (0.2-1.0) Aspartate Amino Transf (AST/SGOT) 33 U/L (15-37) Alanine Aminotransferase (ALT/SGPT) 35 U/L (12-78) Alkaline Phosphatase 65 U/L (46-116) Total Protein 5.9 G/DL (6.4-8.2) L Albumin 1.9 G/DL (3.4-5.0) L Globulin 4.0 g/dL Albumin/Globulin Ratio 0.5 (1.0-2.7) L Current Medications Medications (Trade) Dose Ordered Sig/Isaura Route PRN Reason Start Time Stop Time Status Last Admin Dose Admin Acetaminophen (Tylenol) 650 mg Q6H PRN ORAL Mild Pain/Temp > 100.5 03/21/19 22:30 04/20/19 22:29 03/25/19 08:35 Baclofen (Lioresal) 10 mg BID ORAL 03/23/19 18:00 04/22/19 17:59 03/25/19 17:06 Bethanechol Chloride (Urecholine) 25 mg FOUR TIMES A DAY ORAL 03/24/19 21:00 04/22/19 17:59 03/25/19 17:06 Ceftriaxone Sodium 1 gm/ Dextrose 50 ml @ 100 mls/hr Q24H IVPB 03/24/19 16:00 03/31/19 15:59 03/25/19 16:35 Clopidogrel Bisulfate (Plavix) 75 mg DAILY ORAL 03/22/19 09:00 04/21/19 08:59 03/25/19 08:30 Collagenase (Santyl) 1 applic DAILY TOPIC 03/25/19 17:00 04/24/19 16:59 03/25/19 17:06 Dextrose (Dextrose 50%) 25 ml Q30M PRN IV Hypoglycemia 03/21/19 23:30 04/20/19 23:29 Dextrose (Dextrose 50%) 50 ml Q30M PRN IV Hypoglycemia 03/21/19 23:30 04/20/19 23:29 Diazepam (Valium) 2.5 mg BEDTIME PRN ORAL anxiety 03/24/19 19:22 03/31/19 19:21 Gadobutrol (Gadavist) 7.5 mmol NOW PRN IV Radiology Procedure 03/21/19 23:30 03/25/19 23:20 Gadobutrol (Gadavist) 7.5 mmol NOW PRN IV Radiology Procedure 03/21/19 23:30 03/25/19 23:20 Metformin HCl (Glucophage) 500 mg BID ORAL 03/21/19 22:30 04/20/19 22:29 03/25/19 17:06 Sodium Chloride 1,000 ml @ 50 mls/hr Q20H IV 03/23/19 16:48 04/22/19 16:47 03/25/19 11:56 Height (Feet): 5 Height (Inches): 3.00 Weight (Pounds): 146 General Appearance: no apparent distress, alert, non-toxic Head: normocephalic, atraumatic Eyes: bilateral anicteric ENT: normal voice Neck: full range of motion, no mass Respiratory: lungs clear Cardiovascular: regular rate, rhythm Gastrointestinal: normal bowel sounds, non tender, soft, no mass, no organomegaly Musculoskeletal: no calf tenderness Edema: no edema noted Generalized Neurologic: no new focality Skin: other - Groin, especially R crease erythematous. Julian Tony MD Mar 25, 2019 20:31
[2019-03-25] MEDS: Tamsulosin 0.4mg cap ORAL SCH (21:07)
[2019-03-26] VITALS: BP 120/70
--- NOTE | 2019-03-26 00:40 | NUR ---
NURSE NOTES: bladder scanner done on patient- per doctors orders Q6 hours - bladder scanner showed 676mls- will do I/O catheter - per order to removed urine.
--- NOTE | 2019-03-26 00:41 | NUR ---
NURSE NOTES: I /o catheter inserted - patient has 750mls for output- will continue to monitor pt. and with plan of care- pt. remains stable.
[2019-03-26 04:00] VITALS: BP 134/60
--- NOTE | 2019-03-26 06:00 | NUR ---
NURSE NOTES: reassessed pts bladder with bladder scanner- residual showing about 525mls- will do I /O catheter to empty bladder- per doctors orders
--- NOTE | 2019-03-26 06:12 | NUR ---
NURSE NOTES: 450mls of output of urine from catheter- will continue to monitor pt. and with plan of care.
--- NOTE | 2019-03-26 07:19 | NUR ---
6HAND-OFF: Report given to Imelda Prado, pt. remains stable and no signs of distress noted.
[2019-03-26 07:20] LABS: ANION GAP 10 mmol/L (5-15); BLOOD UREA NITROGEN 17 mg/dL (7-18); CALCIUM 8.7 MG/DL (8.5-10.1); CARBON DIOXIDE 26 MMOL/L (21-32); CHLORIDE 106 MMOL/L (98-107); CREATININE 0.8 MG/DL (0.55-1.30); POTASSIUM 3.6 MMOL/L (3.5-5.1); SODIUM 142 MMOL/L (136-145)
--- NOTE | 2019-03-26 07:25 | NUR ---
NURSE NOTES: Received bedside report from Christopher WEINER. Pt. in bed, awake, a/o x 4. No sign of distress. Denies pain at present. IV at left FA #[id number]. in placed patent/intact running NS @ 40cc/hr. Tolerating well. Bed in low position, locked. Call light within reach. Will cont. to monitor.
[2019-03-26 08:00] VITALS: BP 147/73
[2019-03-26] MEDS: metFORMIN 500mg tab ORAL SCH (09:11)
[2019-03-26] MEDS: Bethanechol 25mg Tab ORAL SCH (09:11)
[2019-03-26] MEDS: Tamsulosin 0.4mg cap ORAL SCH (09:11)
--- NOTE | 2019-03-26 11:06 | NUR ---
RD ASSESSMENT & RECOMMENDATIONS SEE CARE ACTIVITY FOR COMPLETE ASSESSMENT DAILY ESTIMATED NEEDS: Needs based on DM, wound/ 57kg 25-30 kcals/kg 2880-0575 total kcals 1.25-1.5 g protein/kg 71-85 g total protein 25-30 mL/kg 8291-5458 total fluid mLs NUTRITION DIAGNOSIS: Increased kcal/prot/micronutrients needs R/T wound healing as evidenced by pt admitted w/ wounds, including non-blanchable erythema at sacrum and R heel, unstageable pressure injury at L Ischium, DTPI at L trochanter, L heel, and R foot. CURRENT DIET:[facility] MED PO DIET RECOMMENDATIONS: [facility] MED/ texture as tolerated ADDITIONAL RECOMMENDATIONS: * Calibrated bedscale wt for accurate CBW- bed w/ [id number] + pump * Wound healing: add MVI x 1, Vit C 500mg QD : add ZnSO4 220mg QD x 10 days : Agustín 1pkt BID * Monitor for continued good PO intake
--- NOTE | 2019-03-26 11:14 | NUR ---
DISCHARGE PLANNED PATIENT HAS BEEN ACCEPTED AT [facility] RO[facility] [address] SKILLED T: [phone] FOR NURSE TO NURSE REPORT [facility] HAS BEEN ARRANGED FOR [address] [employer]
[2019-03-26 12:00] VITALS: BP 150/68
--- NOTE | 2019-03-26 12:24 | Surgery Progress Note ---
Surgery Progress Note Subjective Symptoms: improved, tolerating diet, voiding well, passing flatus Additional Comments new full air mattress states more comfortable wound dressings changed Objective Last 24 Hour Vital Signs Date Time Temp Pulse Resp B/P (MAP) Pulse Ox O2 Delivery O2 Flow Rate FiO2 03/26/19 09:00 Room Air 03/26/19 08:00 97.9 94 18 147/73 (97) 99 03/26/19 07:50 97 03/26/19 04:00 98.1 89 18 134/60 (84) 94 03/26/19 03:29 89 03/26/19 01:47 98.2 03/26/19 00:00 98.2 60 18 120/70 (87) 100 03/25/19 23:29 101 03/25/19 21:00 Room Air 03/25/19 20:00 98.0 97 20 150/72 (98) 98 03/25/19 19:35 102 03/25/19 16:00 98.3 98 18 147/62 (90) 97 03/25/19 15:53 98 I&O Intake and Output 03/25/19 03/26/19 19:00 07:00 Intake Total 590 ml 467 ml Output Total 1200 ml 1200 ml Balance -610 ml -733 ml Intake Oral 240 ml IV Total 350 ml 467 ml Output Urine Total 1200 ml 1200 ml Dressing: saturated Wound: clean Cardiovascular: RSR Respiratory: clear Abdomen: soft, non-tender, present bowel sounds Extremities: no edema, no tenderness, no cyanosis Laboratory Tests Test 03/26/19 05:50 Sodium Level 142 MMOL/L (136-145) Potassium Level 3.6 MMOL/L (3.5-5.1) Chloride Level 106 MMOL/L (98-107) Carbon Dioxide Level 26 MMOL/L (21-32) Anion Gap 10 mmol/L (5-15) Blood Urea Nitrogen 17 mg/dL (7-18) Creatinine 0.8 MG/DL (0.55-1.30) Estimat Glomerular Filtration Rate mL/min (>60) Glucose Level 113 MG/DL (74-106) H Calcium Level 8.7 MG/DL (8.5-10.1) Plan Problems: (1) Skin ulcer Assessment & Plan: Pt presented on admission with multiple skin injuries. Non- blanchable erythema without induration sacrum. Macular red rash noted to R groin and perineum. Pt denied burning or itching. traumatic injury L Ischium. Base of wound 95% yellow slough,5% necrotic. Erythema with shearing noted periwound. (L)3.4cm x (W)3cm. Pt stated due to fevers and weakness she has been unable to transfer to bed and has been sitting up in wheelchair continuously as well as lots of movement on the left ischium in her wheelchair. Pt stated she belives she has had wound for a week or so from trauma and pressure given recent events. DTPI noted to L trochanter. Wound is linear ,indurated and maroon in colour. Pt verbalized pain at site when minimally palpated.(L)11cm x (W)0.8cm. DTPI L heel extending into plantar aspect. Base of wound is maroon with purple area at plantar aspect. Pt stated she developed wound to heel approx 6 weeks ago.(L)5.8cm x (W)5cm. R heel is boggy with non-blanchable erythema. Non-tender when palpated. DTPI lateral R foot. Base of wound maroon with red tinged borders. (L)0.7cm x (W )0.5cm. s/p crosshatch area of 3.45cm x3cm on left ischium. seemingly superficial as minimal sloth prior to good tissue. cont with care as below plan for santyl if available to crosshatched wound Tx.Plan: Apply Cavilon Skin Barrier to L trochanter (Do Not Massage/Rub site). Cover with Optifoam drsg. Change every 7 days and prn. Cleanse wound L ischium with Saline.Apply Therahoney. Apply Cavilon periwound. Cover with Optifoam drsg every 3 days and prn. Apply Moisture Barrier Paste to Sacrum. Coover with Optifoam drsg. Change every 3 days and prn. Apply Cavilon Skin Barrier to R heel , Lateral R foot and L heel. Cover with Optifoam drsg. Change every 7 days and PRN. APM/CRYSTAL Mattress overlay. Reposition at least every 2hours or as tolerated. Off-load heels with pillow. (2) Rhabdomyolysis Assessment & Plan: CK elevated and trending down fluids trend labs IMPRESSION: Cholelithiasis. No sonographic evidence to suggest acute cholecystitis. Sonographic Carroll sign reported as negative. * Pancreas obscured due to overlying bowel gas and not evaluated. * Distended bladder with a volume of 515 mL. Correlate for urinary retention. Mild layering debris noted within the bladder. Correlation with urinalysis recommended to assess for cystitis. (3) Fever (4) Volume depletion (5) Pyelonephritis (6) Sepsis (7) Multiple sclerosis (8) B12 deficiency (9) Acute kidney injury Jamir Chang Mar 26, 2019 12:24
--- NOTE | 2019-03-26 12:43 | NUR ---
NURSE NOTES: Called and gave report to Trinh WEINER of [facility] .
--- NOTE | 2019-03-26 13:16 | NUR ---
Discharge: Patient is being discharged to [facility] from medical care. Awake, alert and oriented x4. After care instructions were given. Patient verbalized understanding of after care instructions upon discharge. All medical devices such as IV, damage cutter and ID band were removed. Patient wheeled out via [facility] with all personal belongings. Pt. remain stable.
--- NOTE | 2019-03-26 23:55 | Discharge Summary ---
Discharge Summary Discharge Summary _ Date of Admission: March 21, 2019. Date of Discharge: March 26, 2019. Discharge Diagnoses: 1. Recurrent urinary tract infection, with systemic symptoms including fever and generalized weakness. 2. Azotemia and electrolyte disorders associated with hypovolemia, due to urinary tract infection. 3. Rhabdomyolysis associated with immobility and deep tissue injury. 4. Multiple areas of skin compromise including erythema over bilateral heels, perineal erythema, bilateral inguinal crease erythema, left trochanteric redness , and left ischial ulceration with overlying slough. 5. Persistent urinary retention, with prior history of detrusor hyperreflexia. 6. History of multiple sclerosis, quiescent over 40 years with functional quadriparesis, with alternative diagnosis of transverse myelitis. 7. Hypertension. 8. Diabetes mellitus with neuropathy. 9. Dyslipidemia. 10. Bilateral intermittent claudication of the lower extremities. 11. History of left lower extremity cellulitis complicated by heel ulceration. 12. 2 prior episodes of word finding difficulty attributed to cerebrovascular accident and/or migraine. 13. 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 14. Patent foramen ovale. Medications: 1. Ceftriaxone 1 g IV daily for additional 6 days. 2. Clotrimazole topical 3 times daily to bilateral groins and perineum. 3. Urecholine 25 mg 4 times daily. 4. Tamsulosin 0.4 mg every 12 hours. 5. Diazepam 2.5 mg nightly as needed. 6. Lioresal 10 mg twice daily. 7. Plavix 75 mg daily. 8. Metformin 500 mg twice daily. 9. Acetaminophen 650 mg every 6 hours as needed. Santyl and wound dressings per wound care. [id number] mattress/alternating pressure mattress. Allergies: Sulfa. History of Present Illness: Ms. Russell is a 73-year-old woman with chronic neurologic disease which is rendered her wheelchair bound. She recently developed weakness and was found to have a Citrobacter koseri urinary tract infection which was treated with Keflex as an outpatient. There was initial improvement, followed by recurrent weakness fever and inability to care for self. She was seen in the office and then referred to the emergency department. In the emergency department, there was evidence of fever, marked pyuria, azotemia with electrolyte disorder, significant elevation of CPK, and evidence of multiple areas of skin compromise. Ms. Russell was admitted for further evaluation and treatment. Details of the history and physical examination are per the dictation of March 21, 2019. Hospital Course: Initial treatment was begun with empirical meropenem and intravenous hydration. Infectious disease consultation was obtained from Dr. Ronnie Bloom. Urine culture eventually grew out Providencia rettgeri. Antibiotic spectrum was decreased with substitution of ceftriaxone. Patient was noted on bladder scan to have residuals consistently in the 600 to 700 mL range. The patient did not experience significant bladder spasms. Oxybutynin was discontinued. Subsequently Urecholine was titrated upward. When this was not successful tamsulosin was begun. At the time of discharge the patient is still not voiding spontaneously. One component contributing to this issue may be that she is been bedbound during the hospitalization. It is hoped that, with mobilization and further titration of her medications, she will be able to void spontaneously. If this cannot be achieved Ms. Russell will need to learn self- catheterization or utilize some type of indwelling catheter. Skin wounds were evaluated by Dr. Chang. The day before discharge he crosshatched the slough and eschar covering the left ischial wound. Santyl and various dressings were used. A pressure relief bed was also utilized. Chlortrimazole was added for fungal dermatitis in the groins and perineal area. On presentation, Ms. Russell was considerably weaker than her usual baseline. She carried a diagnosis of multiple sclerosis which is been quiesced sent for approximately 40 years. There was concern that the weakness could represent an exacerbation of the multiple sclerosis. MRI of the brain and cervical spine were done with and without gadolinium. Neurologic consultation was obtained from Dr. Onur Oneal. Based on the lack of obvious demyelinating lesions on the scans, Dr. Oneal felt that perhaps the correct diagnosis was a transverse myelitis. Ms. Russell was informed of this potential reclassification. In any event it was felt that her excessive weakness was due to to the superimposition of the acute illness on top of her chronic neurologic deficits. Because of symptoms of muscle spasm, her chronic baclofen was resumed. After discussion with the patient, it was agreed that a tapering of her diazepam would be indicated, and the dose was decreased. The elevation of CPK was felt to represent rhabdomyolysis associated with her immobility as well as her deep tissue injuries. With hydration the CPK normalized. At the time of discharge, Ms. Russell's mentation and affect had returned to recent baseline. However she remained weak with poor transfer ability. She also had several significant areas of skin compromise including her left facial ulcer. Ms. Russell had planned to transfer to an [facility], selling her condominium where she is lived. However based on her weakness and the skin compromise it was agreed that she would benefit from a course of physical therapy and wound care at a [facility] facility. Patient is being discharged to [facility] and will be followed there. Julian Tony MD Mar 26, 2019 23:55
== END 2019-03-26 13:15 | DRG 872 ==
LOC: EMR 15:45 → 2E 17:43 → EDBEDREQ 20:15
DX: A41.9 Sepsis, unspecified organism (principal); N39.0 Urinary tract infection, site not specified; M62.82 Rhabdomyolysis; Q21.1 Atrial septal defect; N17.9 Acute kidney failure, unspecified; N12 Tubulo-interstitial nephritis, not specified as acute or chronic; B96.89 Other specified bacterial agents as the cause of diseases classified elsewhere; Z88.2 Allergy status to sulfonamides; I10 Essential (primary) hypertension; E78.5 Hyperlipidemia, unspecified; E11.40 Type 2 diabetes mellitus with diabetic neuropathy, unspecified; R29.2 Abnormal reflex; Z79.84 Long term (current) use of oral hypoglycemic drugs; E86.1 Hypovolemia; I73.9 Peripheral vascular disease, unspecified; Z86.73 Personal history of transient ischemic attack (TIA), and cerebral infarction without residual deficits; G43.909 Migraine, unspecified, not intractable, without status migrainosus; L89.620 Pressure ulcer of left heel, unstageable; L89.890 Pressure ulcer of other site, unstageable; L89.226 Pressure-induced deep tissue damage of left hip; L89.626 Pressure-induced deep tissue damage of left heel; L89.896 Pressure-induced deep tissue damage of other site; G35 Multiple sclerosis; Z99.3 Dependence on wheelchair; E53.8 Deficiency of other specified B group vitamins
CPT/HCPCS: 36415; 70553; 71045; 72156; 76700; 76856; 80048; 80053; 81003; 82550; 82553; 82607; 82962; 83036; 83605; 83735; 85025; 85651; 87040; 87086; 87181; 93005; 96361; 96365; 96367; 99285; A9585; J7030

== ENCOUNTER 2019-06-15 14:24 | Emergency (ER) | payer MEDICARE ==
[~2019-06-15] VITALS: Ht 162.6 cm; Wt 61.2 kg
[~2019-06-15 14:24] MED LIST: COZAAR25 MG ORAL; DITROPAN XL5 MG ORAL; METFORMIN HCL500 M1 ORAL; OXYTROL FOR WO1 EACH TD; PLAVIX75 MG ORAL; VALIUM2 MG ORAL
[2019-06-15 14:30] VITALS: BP 106/77
--- NOTE | 2019-06-15 14:30 | NUR ---
ED Nurse Note: pt came to ER with electronic WC with daughter due to no urine in urine bag with FC. FC 16Fr was inserted by home health nurse at 0900 this morning and pt has not seen urine in bag since. pt denied pain. calm and cooperative. skin clean and intact. no cardiac or pulmonary distress noted at this time.
[2019-06-15 14:41] VITALS: BP 156/74
--- NOTE | 2019-06-15 15:01 | Emergency Room Report ---
History of Present Illness General Chief Complaint: Female Urogenital Problems Source: Patient, Medical Record Present Illness HPI Patient presented with a clogged Schaeffer catheter Reports that yesterday she had a clogged catheter and a home health nurse came in to change the catheter this morning the catheter was changed again However since then feels that the Schaeffer catheter has been clogged and not draining Denies any fevers or chills denies any chest pain patient Is paraplegic and has chronic Schaeffer catheter in place Allergies: Coded Allergies: SULFA (SULFONAMIDE ANTIBIOTICS) (Verified Allergy, Unknown, 10/07/08) Patient History Past Medical History: see triage record Reviewed Nursing Documentation: PMH: Agreed; PSxH: Agreed Nursing Documentation-PMH Hx Diabetes: Yes - type 2 Hx Neurological Problems: Yes Hx Multiple Sclerosis: Yes Review of Systems All Other Systems: negative except mentioned in HPI Physical Exam Vital Signs Date Time Temp Pulse Resp B/P (MAP) Pulse Ox O2 Delivery O2 Flow Rate FiO2 06/15/19 14:41 98.4 85 20 156/74 (101) 95 Room Air Sp02 EP Interpretation: reviewed, normal General Appearance: well appearing, no apparent distress Head: normocephalic, atraumatic Eyes: bilateral eye PERRL, bilateral eye EOMI ENT: hearing grossly normal, EOM grossly intact Neck: supple Respiratory: no respiratory distress, no retraction, no accessory muscle use Cardiovascular #1: regular rate, rhythm Gastrointestinal: soft Musculoskeletal: other - Paraplegia Neurologic: alert, oriented x3 Skin: no rash Medical Decision Making Diagnostic Impression: Primary Impression: urinary retension ER Course Upon placing the patient onto a bed to have further evaluation the Schaeffer catheter bag now is full of urine with over 600 cc of urine Patient reports that this was not the case prior to arrival It appears that the catheter is now flowing well Therefore the decision was made not to have any further intervention and patient will have close outpatient follow-up Last Vital Signs Date Time Temp Pulse Resp B/P (MAP) Pulse Ox O2 Delivery O2 Flow Rate FiO2 06/15/19 14:41 98.4 85 20 156/74 (101) 95 Room Air Status: improved Disposition: HOME, SELF-CARE Condition: Improved Referrals: Julian Tony MD Patient Instructions: Schaeffer Catheter Care, Adult, [id number], Acute Urinary Retention, Female, [id number] Additional Instructions: Patient is provided with the discharge instructions notified to follow up with primary doctor in the next 2-3 days otherwise return to the er with any worsening symptoms. Please note that this report is being documented using [employer] technology. This can lead to erroneous entry secondary to incorrect interpretation by the dictating instrument. Dylan Cleaning DO Jun 15, 2019 15:01
--- NOTE | 2019-06-15 15:08 | NUR ---
ED Nurse Note: Pt cleared by health care Provider for discharge. 1L of urine came out to urine bag. urine yellow and clear. no blood present in urine. DC instructions/prescription was given and explained to pt and verbalized understanding of teachings. All medical deviecs such as ID band removed. Pt is AAO x4, pt is accompanied by daughter, WC bound and left with all personal belongings.
== END 2019-06-15 15:09 | disposition home or self-care (01) ==
LOC: EMR 15:00
DX: R33.9 Retention of urine, unspecified (principal); Z96.0 Presence of urogenital implants; E11.9 Type 2 diabetes mellitus without complications; G35 Multiple sclerosis; Z88.2 Allergy status to sulfonamides
CPT/HCPCS: 99282